=== PATIENT | female | born 1955 | race Caucasian/White ===

== ENCOUNTER → 2019-01-03 | Day surgery (SDC) | payer MEDICARE, OTHER ==
[2018-12-30 12:11] VITALS: BMI 32.3
[~2019-01-03] MED LIST: ALPRAZolam 0.25 MG TAB PO PRN; ASPIRIN 325 MG TAB PO STA; IOPAMIDOL-250 100ML BTL INTRAARTER ONE; IOPAMIDOL-250 50ML BTL INTRAARTER ONE; LIDOCAINE 1% INJ 10MG/ML (20 ML MDV) SQ ONE; MIDAZOLAM 2 MG/2 ML VIAL IVP ONE; SODIUM CHLORIDE 0.9% 1,000 ML IV SCH; SODIUM CHLORIDE 0.9% 1,000 ML in EMPTY BAG 1 BAG IV ONE
[2019-01-03 11:17] VITALS: TEMP 97.9
--- NOTE | 2019-01-03 14:53 | IR ---
Fluoroscopy HISTORY: Pain in leg 1.4 minutes fluoroscopy time supplied to the referring clinician. 126 intraoperative C-arm images do cument the procedure. See dictated report from cardiology.
[2019-01-03 15:03] VITALS: BP 170/74; PULSE 68; RESP 16
--- NOTE | 2019-01-03 15:34 | AN ---
ANGIOGRAPHY REPORT PROCEDURE PERFORMED: Abdominal aortogram and bilateral lower extremities runoff DATE OF SERVICE: 01/03/2019. INDICATION: This is a pleasant 63-year-old female patient who was experiencing bilateral lower extremity intermittent claudication and underwent an arterial duplex study which showed severe bilateral SFA disease. She was brought today to undergo an angiogram. APPROACH: Right common femoral artery. COMPLICATION: None. LEVEL OF SEDATION: Moderate with sedation length of 18 minutes. PROCEDURE DESCRIPTION: After obtaining an informed consent, the patient was brought to cardiac laboratory equipment installer. The right common femoral artery was cannulated using micropuncture technique and a micropuncture wire passed easily. Then I placed 4-Macedonian sheath in the right common femoral artery. After that, I did an abdominal aortogram and bilateral lower extremity runoff using 4- Macedonian pigtail catheter which was initially placed at the level of the renal arteries and it was pulled into above the bifurcation of the aorta to right and left common iliac arteries. The procedure was completed without any complication. PERIPHERAL ANGIOGRAM: 1. The aorta appeared to be angiographically normal. 2. COMMON ILIAC ARTERIES: The right and left common iliac arteries appear to have mild disease only. 3. External iliac artery: The right external iliac artery appeared to have a tight lesion in the range of 70%. The left external iliac artery appeared to have mild disease only. 4. Common femoral artery, both have mild disease only. 5. Profunda: Both profunda are patent. 6. SFA: The right SFA and left SFA are occluded on long segment. It is longer on the right side than the left side. Both reconstitute by the popliteal. 7. Popliteal: Both popliteal are angiographically normal. 8. Below the knee: There are 3 vessel runoff below the knee bilaterally. CONCLUSION: 1. 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 2. Occluded bilateral SFA. POSTPROCEDURE MANAGEMENT: TRASH MAN of bilateral SFA to be done on 2 separate sessions as well as TRASH MAN of the right external iliac. MMODL / IJN: [id number] /
== END | disposition home or self-care (01) ==
LOC: CATHCVL 10:53
PROVIDERS: ATTEND Internal Medicine Interventional Cardiology
DX: I70.213 Atherosclerosis of native arteries of extremities with intermittent claudication, bilateral legs (principal); F17.210 Nicotine dependence, cigarettes, uncomplicated; I10 Essential (primary) hypertension; E78.1 Pure hyperglyceridemia; E78.5 Hyperlipidemia, unspecified; Z79.899 Other long term (current) drug therapy
CPT/HCPCS: 36200; 75625; 75716; C1894; C1769 ×4; J2250; J2001; Q9966

== ENCOUNTER 2019-04-14 07:30 | Day surgery (SDC) | payer MEDICARE ==
[2019-03-17 09:58] VITALS: BMI 32.3
[~2019-04-14 07:30] MED LIST changes: -IOPAMIDOL-250 100ML BTL INTRAARTER ONE; -IOPAMIDOL-250 50ML BTL INTRAARTER ONE; -LIDOCAINE 1% INJ 10MG/ML (20 ML MDV) SQ ONE; -MIDAZOLAM 2 MG/2 ML VIAL IVP ONE; -SODIUM CHLORIDE 0.9% 1,000 ML IV SCH
[2019-04-14] MEDS ORDERED: SODIUM CHLORIDE 0.9% 1,000 ML IV ONE (08:22)
[2019-04-14] MEDS ORDERED: LIDOCAINE 1% INJ 10MG/ML (20 ML MDV) SQ ONE ×2 (09:19→09:20)
[2019-04-14] MEDS ORDERED: SODIUM CHLORIDE 0.9% 500 ML 500 ML with niCARdipine 6.25 MG, NITROGLYCERIN-D5W PMX 0.05... IV ONE ×4 (10:26)
[2019-04-14] MEDS ORDERED: IOPAMIDOL-250 100ML BTL INTRAARTER ONE (11:10)
[2019-04-14] MEDS ORDERED: niCARdipine Syringe (1,000 mcg/10 mL) INTRAARTER ONE (11:45)
[2019-04-14] MEDS ORDERED: NITROGLYCERIN 1000MCG/10ML SYRINGE INTRAARTER ONE (11:45)
[2019-04-14] MEDS ORDERED: IOPAMIDOL-250 50ML BTL INTRAARTER ONE (11:48)
[2019-04-14] MEDS ORDERED: SODIUM CHLORIDE 0.9% 500 ML 500 ML IV ONE (11:52)
[2019-04-14] MEDS ORDERED: ALPRAZolam 0.25 MG TAB PO PRN (11:57)
[2019-04-14] MEDS ORDERED: SODIUM CHLORIDE 0.9% 1,000 ML IV SCH (12:00)
[2019-04-14] MEDS ORDERED: HYDROmorphone 1 MG/ML 1 ML SYRINGE IVP STA (13:22)
[2019-04-14] MEDS ORDERED: HYDROmorphone 1 MG/ML 1 ML SYRINGE IVP ONE (13:45)
[2019-04-14] MEDS ORDERED: hydrALAZINE HCL 20 MG/ML 1 ML VIAL IVP PRN (14:46)
[2019-04-14] MEDS ORDERED: ATROPINE SULFATE 0.1 MG/ML 10ML SYRINGE ONE (15:19)
[2019-04-14 16:13] VITALS: RESP 18
--- NOTE | 2019-04-14 16:54 | LTR ---
April 14, 2019 To: Dr. Dakota Raphael Re: Morena Knapp (51) Dear Dr. Raphael, Mrs. Knapp underwent successful balloon angioplasty and stenting and opening of the left femoral artery with an excellent angiographic result and reduction of stenosis from 100% to 0%. Again thank you for allowing me to participate in her care and please do not hesitate to call with any questions or concerns. Sincerely, MD DAVID Franks / AVIN: [id number] /
--- NOTE | 2019-04-14 18:53 | AN ---
ANGIOGRAPHY REPORT DATE OF SERVICE: 04/14/2019 PERFORMING PHYSICIAN: Sina Marino MD, estimator and drafter. PROCEDURES PERFORMED: 1. Non-selective left eosrr-lew-ydov angiogram. 2. Selective left SFA angiogram. 3. Successful crossing of chronic total occlusion of the left SFA, which was a long chronic total occlusion extending from the ostium of the left SFA to the left popliteal. 4. Atherectomy of the left SFA using the orbital atherectomy device from C[facility]. 5. Balloon angioplasty of the left SFA. 6. Successful stenting of the left SFA using 3 Zilver PTX drug-coated stents with excellent angiographic results and reduction of stenosis from 100% to 0%. INDICATION: This is a pleasant 63-year-old female patient with prior history of smoking as well as multiple comorbidities who was experiencing bilateral lower extremity intermittent claudication and underwent a peripheral angiogram about 2 months ago that revealed occluded bilateral SFA with a long area of occlusion bilaterally. She underwent balloon angioplasty and stenting of the right SFA and she was brought today to undergo balloon angioplasty of the left SFA. APPROACH: Right common femoral artery. COMPLICATIONS: None. LEVEL OF SEDATION: The procedure was performed under general anesthesia. The duration of the procedure was 152 minutes. PROCEDURE DESCRIPTION: After obtaining informed consent, the patient was brought to the cardiac analyst microbiology lab. The right common femoral artery was cannulated using micropuncture technique and the micropuncture wire passed easily. Then I placed a 6-Zambian sheath 11 cm in the right common femoral artery. After that I did select the left SFA using a 5-Zambian RIM catheter with an 0.035 Aroda Advantage wire. After that I exchanged my 11 cm 6-Zambian sheath for a 55 cm 6-Zambian Raabe sheath using the 0.035 Aroda Advantage wire. The tip of the sheath was positioned in the left common femoral artery. I attempted to cross the chronic total occlusion of the left SFA using an 0.018 gold- tipped Glidewire, but I was only able to do so using an 0.035 stiff Glidewire with the backup support of an 0.035 CXI catheter. I advanced the CXI catheter to the left popliteal and I injected in the left popliteal to prove that I was in the true lumen. Subsequently I did exchange my 0.035 Glidewire for an 0.014 ViperWire, preparing for rotational atherectomy. I did rotational atherectomy of the proximal left SFA and attempted doing atherectomy of of a proximal left SFA I attempted doing atherectomy of the mid left SFA, but the atherectomy device stopped working, and because of that I had to pull the device out. Unfortunately, at that point I lost my wire position as well. So I did re-wire again the left SFA using an 0.035 stiff Glidewire with the backup support of 0.035 CXI catheter. After that I did balloon angioplasty of the left SFA using the 5.0 chocolate balloon. After that I did stenting of the left SFA using distally a Zilver PTX drug-coated stent, which was 6 x 140 mm. In the mid I deployed 7 x 140 mm. Proximally I deployed 7 x 100 mm. After that I did balloon all the stents using 6 x 200 mm balloon. The final angiogram showed excellent angiographic results with excellent pulse in the dorsalis pedis and posterior tibial artery. At that point, I exchanged my long sheath for a short sheath using 0.035 stiff Glidewire. After that I did selective right common femoral artery angiogram to assess the sheath entry in the right common femoral artery. Please note that before we started the procedure, I gave the patient 10,000 units of heparin IV with continuous ACT monitoring throughout the procedure. POST-PROCEDURE MANAGEMENT: 1. Dual anti-platelet therapy. 2. Risk factors modifications. 3. Follow up with the patient. DAVID / SILVA: [id number] /
[2019-04-14] MEDS: HYDROmorphone 1 MG/ML 1 ML SYRINGE IVP PRN ×2 (18:55→21:38)
[2019-04-15] MEDS: HYDROmorphone 1 MG/ML 1 ML SYRINGE IVP PRN (04:53)
[2019-04-15 07:57] LABS: Potassium 4.2 mmol/L (3.5-5.1)
[2019-04-15 08:19] LABS: Basophils % (A) 0 %; Eosinophils # (A) 0.1 k/uL (0-0.7); Eosinophils % (A) 1 %; HCT 30.1 % (34.0-46.0); Hypochromasia Slight; Lymphocytes # (A) 1.6 k/uL (1.0-4.8); Lymphocytes % (A) 14 %; MCH 27.6 pg (25.0-35.0); MCHC 31.4 g/dL (31.0-37.0); Mean Platelet Volume 7.4; Monocytes # (A) 0.5 k/uL (0-1.0); Monocytes % (A) 5 %; Neutrophils % (A) 79 %; Platelet Count 299 k/uL (150-450); RBC 3.42 m/uL (3.80-5.40); RDW 13.8 % (11.5-15.5); WBC 11.4 k/uL (3.8-10.6)
[2019-04-15 08:24] LABS: HGB 9.4 gm/dL (11.4-16.0)
[2019-04-15] MEDS ORDERED: RX INFO: IV CONTRAST WAS GIVEN 1 EACH MISC MISCELLANE PRN (08:33)
[2019-04-15] MEDS ORDERED: SODIUM CHLORIDE 0.9% 1,000 ML IV ONE (08:34)
[2019-04-15] MEDS ORDERED: EPA PO SCH (09:00)
[2019-04-15] MEDS ORDERED: CLOPIDOGREL 75 MG TAB PO SCH (09:00)
[2019-04-15] MEDS ORDERED: MAGNESIUM OXIDE 400 MG TAB PO SCH (09:00)
[2019-04-15] MEDS ORDERED: FISH OIL PO SCH (09:00)
[2019-04-15] MEDS ORDERED: LISINOPRIL-HCTZ 20-12.5 MG 1 EACH TAB PO SCH (09:00)
[2019-04-15] MEDS ORDERED: ATORVASTATIN 20 MG TAB PO SCH (09:00)
[2019-04-15] MEDS ORDERED: CALCIUM CARB-VIT D 500MG-200UN 1 EACH TAB PO SCH (09:00)
[2019-04-15] MEDS ORDERED: buPROPion SR 150 MG TABLET.ER PO SCH (09:00)
[2019-04-15] MEDS ORDERED: DHA PO SCH (09:00)
[2019-04-15] MEDS ORDERED: ASPIRIN 325 MG TAB PO SCH (09:00)
--- NOTE | 2019-04-15 10:21 | CT ---
EXAMINATION TYPE: CT angio abd aorta w/Runoff DATE OF EXAM: 04/15/2019 HISTORY: Recent stenting in left leg CT DLP: 3860.5mGycm Automated Exposure Control for Dose Reduction was Utilized. CONTRAST: CT scan of the abdomen and pelvis is performed without and with IV Contrast, patient injected with 10 0 mL of Isovue 370. COMPARISON: None. FINDINGS: There is dependent atelectasis present at the right lung base. Visualized portions of the l ungs are clear. There is no pleural or pericardial fluid. The heart is not enlarged. Within the abdomen, the liver, gallbladder and spleen are normal. There is a 1.6 cm right adrenal mas s and a larger 3.8 cm left adrenal mass. Both kidneys demonstrate function and appear morphologically normal. The pancreas is unremarkable. There is extensive arterial calcification throughout the study including the coronary arteries. This is most marked in the iliac, femoral and popliteal arteries. There is a right knee arthroplasty in pl katelynn obscuring the arterial detail the level of the right knee. There is initially three-vessel runoff bilaterally. There is two-vessel runoff on the right extending to the ankle consisting of the perone al artery and the posterior tibial artery. There is two-vessel runoff on the left than the level of t he ankle consisting of the posterior tibial artery and the peroneal artery. There is swelling in the left thigh with a small pocket of air. This may relate to the patient's punc ture. The bladder is unremarkable. Uterus is normal in size. The ovaries are not seen with certainty. There is no significant diverticular change and there is no radiographic evidence of diverticulitis. The appendix is normal. Small bowel loops are normal in caliber. There is no free fluid and no free air. There is an umbilical hernia containing fat only with a mouth measuring 6.3 mm. Just superior to this is a ventral hernia containing fat only with a mouth measuring 1.2 cm. There is facet arthropathy in the lower lumbar spine and mild hypertrophic spondylosis in the upper s pine. IMPRESSION: 1. EXTENSIVE ARTERIAL CALCIFICATION WITH TWO-VESSEL RUNOFF BILATERALLY. 2. MODERATE SOFT TISSUE SWELLING ADJACENT TO THE PUNCTURE SITE LIKELY REPRESENTING A HEMATOMA. 3. BILATERAL ADRENAL MASSES, GREATER ON THE LEFT THAN THE RIGHT. 4. VENTRAL AND UMBILICAL HERNIAS CONTAINING FAT ONLY. 5. MILD DEGENERATIVE CHANGES WITHIN THE SPINE.
--- NOTE | 2019-04-15 11:15 | P.DS ---
Providers Date of admission: April 142018 Attending physician: Sina Marino Primary care physician: Dakota Muro [facility] Course: This is a 63-year-old female patient with known peripheral arterial disease and known occluded bilateral superficial femoral arteries and status post balloon angioplasty and stenting of the right SFA, was admitted to the hospital yesterday and underwent successful crossing chronic total occlusion of the long segment in the left SFA extends from ostium all the way to the canal Wilberto. The SFA was crossed in antegrade technique from right groin approach. The procedure was completed without any complication with good angiographic results and reduction of stenosis from 100% to 0%. By the end of the procedure I was able to feel 2+ pulse in the dorsalis pedis on the left side. On follow-up with her today, she was experiencing left thigh discomfort. On examination the left thigh is slightly tender and swollen compared to the right. She still have good pedal pulses. I did suspect bleeding in the thigh on the left side and because of that CTA was performed and did not show any evidence of active bleeding without any extravasation of contrast outside the left SFA but the patient did have a hematoma posterior to the stent in the left thigh. The hemoglobin this morning is 9.4 which was dropped from 11 few weeks ago. I do feel that this is could be an error. I am repeating the hemoglobin this morning again. If the hemoglobin is stable, the patient is going to be discharged home on dual antiplatelet therapy as well as a statin. If the hemoglobin is dropping down I will take the patient back to the rehab and p erform selective left SFA angiogram with the possible placement of covered stent in the left SFA. Plan - Discharge Summary Discharge Rx Participant: No New Discharge Prescriptions: Continue buPROPion [Wellbutrin] 150 mg PO DAILY Atorvastatin [Lipitor] 20 mg PO DAILY Aspirin 325 mg PO DAILY Fish Oil/Dha/Epa [Fish Oil 1,200 mg Fish Oil] 2 each PO DAILY Calcium Carbonate/Vitamin D3 [Calcium 600-Vit D3 400 Caplet] 2 each PO DAILY Lisinopril-Hctz 20-12.5 mg [Zestoretic 20-12.5] 2 tab PO DAILY Clopidogrel [Plavix] 75 mg PO DAILY #90 tab Magnesium Oxide [Anderson] 500 mg PO DAILY ALPRAZolam [Xanax] 0.25 mg PO BID PRN PRN Reason: Anxiety Discharge Medication List buPROPion [Wellbutrin] 150 mg PO DAILY 05/25/16 [History] Aspirin 325 mg PO DAILY 12/30/18 [History] Atorvastatin [Lipitor] 20 mg PO DAILY 12/30/18 [History] Calcium Carbonate/Vitamin D3 [Calcium 600-Vit D3 400 Caplet] 2 each PO DAILY 12/30/18 [History] Fish Oil/Dha/Epa [Fish Oil 1,200 mg Fish Oil] 2 each PO DAILY 12/30/18 [History] Lisinopril-Hctz 20-12.5 mg [Zestoretic 20-12.5] 2 tab PO DAILY 02/16/19 [Hist ory] Clopidogrel [Plavix] 75 mg PO DAILY #90 tab 02/23/19 [Rx] Magnesium Oxide [Anderson] 500 mg PO DAILY 03/17/19 [History] ALPRAZolam [Xanax] 0.25 mg PO BID PRN 04/12/19 [History] Follow up Appointment(s)/Referral(s): Sina Marino MD [STAFF PHYSICIAN] - 1 Week
[2019-04-15 11:29] LABS: Basophils % (A) 0 %; Eosinophils # (A) 0.2 k/uL (0-0.7); Eosinophils % (A) 2 %; HGB 9.6 gm/dL (11.4-16.0); Lymphocytes # (A) 2.6 k/uL (1.0-4.8); Lymphocytes % (A) 19 %; MCHC 31.1 g/dL (31.0-37.0); MCV 86.8 fL (80.0-100.0); Mean Platelet Volume 7.1; Monocytes # (A) 0.9 k/uL (0-1.0); Monocytes % (A) 7 %; Neutrophils # (A) 9.4 k/uL (1.3-7.7); Neutrophils % (A) 70 %; Platelet Count 299 k/uL (150-450); RBC 3.58 m/uL (3.80-5.40); RDW 13.6 % (11.5-15.5); WBC 13.3 k/uL (3.8-10.6)
[2019-04-15 11:54] VITALS: BP 146/62; PULSE 92; TEMP 98.1
--- NOTE | 2019-04-18 16:48 | IR ---
Fluoroscopy HISTORY: Pain in left leg 72.2 minutes fluoroscopy time supplied to the referring clinician. 391 intraoperative C-arm images d ocument the procedure. See dictated report from cardiology.
== END 2019-04-15 13:32 | disposition home or self-care (01) ==
LOC: CATHCVL 07:30 → 3SCARD 14:41 → CATHCVL 04-15 13:32
PROVIDERS: ATTEND Internal Medicine Interventional Cardiology
DX: I70.212 Atherosclerosis of native arteries of extremities with intermittent claudication, left leg (principal); I10 Essential (primary) hypertension; E78.5 Hyperlipidemia, unspecified; F17.200 Nicotine dependence, unspecified, uncomplicated; Z82.49 Family history of ischemic heart disease and other diseases of the circulatory system; Z95.820 Peripheral vascular angioplasty status with implants and grafts; Z79.02 Long term (current) use of antithrombotics/antiplatelets; Z79.82 Long term (current) use of aspirin; Z79.899 Other long term (current) drug therapy
CPT/HCPCS: 37227; 80048; 84132; 85025; 75635; C1894 ×2; C1769 ×8; C1714; C1725 ×2; C1874 ×2; S0106; J2001; J1170 ×2; Q9966 ×2; Q9967

== ENCOUNTER → 2020-01-18 | Outpatient (CLI) | payer MEDICARE ==
[2020-01-18 13:12] LABS: HCT 37.9 % (34.0-46.0); MCH 27.1 pg (25.0-35.0); MCHC 31.6 g/dL (31.0-37.0); MCV 85.9 fL (80.0-100.0); Mean Platelet Volume 7.3; Platelet Count 325 k/uL (150-450); RBC 4.41 m/uL (3.80-5.40); RDW 13.8 % (11.5-15.5); WBC 8.8 k/uL (3.8-10.6)
== END | disposition home or self-care (01) ==
LOC: LABPAT 12:01
PROVIDERS: ATTEND Internal Medicine Interventional Cardiology
DX: Z01.812 Encounter for preprocedural laboratory examination (principal); I73.9 Peripheral vascular disease, unspecified
CPT/HCPCS: 80051; 82565; 84520; 85027

== ENCOUNTER 2020-01-26 09:25 | Day surgery (SDC) | payer MEDICARE ==
[2020-01-24 12:52] VITALS: BMI 32.3
[~2020-01-26 09:25] MED LIST changes: +ALPRAZolam 0.5 MG TAB PO PRN; +ATORVASTATIN 80 MG TAB PO STA; +NITROGLYCERIN SL TABS 0.4 MG TAB SUBLINGUAL PRN
[2020-01-26 09:55] VITALS: RESP 16; TEMP 97.8
[2020-01-26] MEDS ORDERED: SODIUM CHLORIDE 0.9% 1,000 ML IV ONE (09:56)
[2020-01-26] MEDS ORDERED: MIDAZOLAM 2 MG/2 ML VIAL IV ONE ×2 (10:54→10:57)
[2020-01-26] MEDS ORDERED: LIDOCAINE 1% INJ 10MG/ML (20 ML MDV) SQ ONE (10:57)
[2020-01-26] MEDS ORDERED: HYDROmorphone 1 MG/ML 1 ML SYRINGE IVP ONE (10:59)
[2020-01-26] MEDS ORDERED: IOPAMIDOL-250 100ML BTL INTRAARTER ONE (11:07)
[2020-01-26] MEDS ORDERED: SODIUM CHLORIDE 0.9% 1,000 ML IV SCH (11:15)
--- NOTE | 2020-01-26 11:42 | AN ---
ANGIOGRAPHY REPORT DATE OF SERVICE: 01/26/2020 PERFORMING PHYSICIAN: Sina Marino MD. PROCEDURE PERFORMED: 1. An abdominal aortogram. 2. Bilateral lower extremities runoff. INDICATION: This is a pleasant 64-year-old female patient with history of peripheral arterial disease and prior stenting of the right external iliac artery as well as bilateral SFA, was experiencing symptoms of bilateral lower extremities intermittent claudication, worse on the left side. She was brought today to undergo an abdominal aortogram and bilateral lower extremities runoff. APPROACH: Right common femoral artery. COMPLICATION: None. LEVEL OF SEDATION: Moderate with sedation length of 13 minutes. PROCEDURE DESCRIPTION: After obtaining an informed consent, the patient was brought to the cardiac botany laboratory assistant. The right common femoral artery was cannulated using micropuncture technique and a micropuncture wire passed easily, then I placed a 5-Swedish sheath 11 cm at the right groin. An abdominal aortogram and bilateral lower extremities runoff were performed using a 5- Swedish pigtail catheter. The procedure was completed without any complication. Please note that the catheter was placed initially at the level of the renal arteries and it was pulled into above the bifurcation of the aorta to right and left common iliac arteries. SELECTIVE PERIPHERAL ANGIOGRAM: 1. The aorta appeared to have mild disease only. 2. Common iliac arteries, both appear to have mild disease only. 3. External iliac artery, the right external iliac artery is stented and the left external iliac artery appeared to have mild disease only. 4. Common femoral arteries, both are patent. 5. The SFA, both are stented and the right SFA appeared to have critical in-stent restenosis and the left SFA is occluded. 6. Popliteal, both appear to have mild to moderate diffuse disease. 7. Below the knee, there are 3 vessel runoff below the knee bilaterally. CONCLUSION: 1. Patent stent in the right external iliac artery. 2. Occluded critical right SFA and occluded left SFA. Both appeared to be in-stent disease. 3. Three vessel runoff below the knee bilaterally. POSTPROCEDURE MANAGEMENT: I will discuss with the patient the next step which either trying to open his bilateral SFA right open the bilateral SFA r to have a femoral-popliteal bypass. MMODL / IJN: [id number] /
--- NOTE | 2020-01-26 12:48 | IR ---
Fluoroscopy HISTORY: Leg pain, peripheral vascular occlusive disease 120 seconds fluoroscopy time supplied to the referring clinician. 98 intraoperative C-arm images doc ument the procedure. See dictated report from cardiology.
[2020-01-26 16:25] VITALS: BP 145/56
[2020-01-26 16:31] VITALS: PULSE 72
== END 2020-01-26 16:05 | disposition home or self-care (01) ==
LOC: CATHCVL 09:25
PROVIDERS: ATTEND Internal Medicine Interventional Cardiology
DX: I70.213 Atherosclerosis of native arteries of extremities with intermittent claudication, bilateral legs (principal); T82.856A Stenosis of peripheral vascular stent, initial encounter; I10 Essential (primary) hypertension; E78.5 Hyperlipidemia, unspecified; F17.210 Nicotine dependence, cigarettes, uncomplicated; Z95.820 Peripheral vascular angioplasty status with implants and grafts; Z79.899 Other long term (current) drug therapy; Z79.82 Long term (current) use of aspirin; Z79.02 Long term (current) use of antithrombotics/antiplatelets; Z82.49 Family history of ischemic heart disease and other diseases of the circulatory system
CPT/HCPCS: 36200; 75625; 75716; C1769 ×5; C1894; J2250; J2001; J1170; Q9966

== ENCOUNTER → 2020-06-14 | Outpatient (CLI) | payer MEDICARE ==
[2020-06-14 13:32] LABS: HCT 32.1 % (34.0-46.0); HGB 9.8 gm/dL (11.4-16.0); Hypochromasia Marked; MCH 24.7 pg (25.0-35.0); MCHC 30.3 g/dL (31.0-37.0); MCV 81.4 fL (80.0-100.0); Mean Platelet Volume 7.9; Platelet Count 375 k/uL (150-450); RBC 3.95 m/uL (3.80-5.40); WBC 8.2 k/uL (3.8-10.6)
[2020-06-14 13:46] LABS: African American GFR (CKD) >90 (>60 ml/min/1.73 sqM); Anion Gap 8 mmol/L; Blood Urea Nitrogen 20 mg/dL (7-17); Carbon Dioxide 26 mmol/L (22-30); Chloride 104 mmol/L (98-107); Magnesium 1.8 mg/dL (1.6-2.3); Non-African American GFR(CKD) 82 (>60 ml/min/1.73 sqM); Potassium 4.3 mmol/L (3.5-5.1); Sodium 138 mmol/L (137-145)
== END | disposition home or self-care (01) ==
LOC: LABPAT 11:56
PROVIDERS: ATTEND Internal Medicine Interventional Cardiology
DX: Z01.818 Encounter for other preprocedural examination (principal); I73.9 Peripheral vascular disease, unspecified
CPT/HCPCS: 80051; 82565; 83735; 84520; 85027

== ENCOUNTER 2020-06-19 06:17 | Day surgery (SDC) | payer MEDICARE ==
[2020-06-18 08:50] VITALS: BMI 32.3
[2020-06-19] MEDS ORDERED: ALPRAZolam 0.25 MG TAB PO PRN ×2 (06:26→10:46)
[2020-06-19] MEDS ORDERED: SODIUM CHLORIDE 0.9% 1,000 ML in EMPTY BAG 1 BAG IV ONE (06:26)
[2020-06-19] MEDS ORDERED: ASPIRIN 325 MG TAB PO ONE (07:00)
[2020-06-19] MEDS ORDERED: HYDROmorphone 1 MG/ML 1 ML SYRINGE IVP ONE (08:14)
[2020-06-19] MEDS ORDERED: MIDAZOLAM 2 MG/2 ML VIAL IVP ONE (08:14)
[2020-06-19] MEDS ORDERED: LIDOCAINE 1% INJ 10MG/ML (20 ML MDV) SQ ONE (08:15)
[2020-06-19] MEDS: hydrALAZINE HCL 20 MG/ML 1 ML VIAL IV ONE ×2 (08:20→12:20)
[2020-06-19] MEDS ORDERED: ENALAPRILAT 1.25 MG/ML 1 ML VIAL IV ONE (08:20)
[2020-06-19] MEDS: HEPARIN SODIUM 1,000 UN/ML (10ML VL) IV ONE ×2 (08:25→09:45)
[2020-06-19] MEDS ORDERED: niCARdipine Syringe (1,000 mcg/10 mL) INTRAARTER ONE (10:02)
[2020-06-19] MEDS ORDERED: IOPAMIDOL-250 100ML BTL INTRAARTER ONE (10:06)
[2020-06-19] MEDS ORDERED: CLOPIDOGREL 75 MG TAB PO ONE (10:11)
--- NOTE | 2020-06-19 10:43 | IR ---
EXAMINATION TYPE: IR fire suppression captain femoral popliteal DATE OF EXAM: 06/19/2020 CLINICAL HISTORY: Peripheral vascular disease TECHNIQUE: Fluoroscopy. COMPARISON: None. FINDINGS: Fluoroscopic guidance was provided during lower extremity angiogram procedure performed by Dr. Marino. A total of 30.4 minutes of fluoroscopic time was utilized during the procedure and multip le images was acquired. Long segment arterial stent within the left lower extremity from groin to pro ximal knee region noted. Please refer to procedure note for further details as I was not present nor performed procedure. IMPRESSION: As Above.
[2020-06-19] MEDS ORDERED: SODIUM CHLORIDE 0.9% 1,000 ML in EMPTY BAG 1 BAG IV SCH (11:00)
[2020-06-19] MEDS ORDERED: HYDROmorphone 1 MG/ML 1 ML SYRINGE ONE (11:41)
[2020-06-19] MEDS ORDERED: hydrALAZINE HCL 20 MG/ML 1 ML VIAL ONE (12:08)
[2020-06-19] MEDS ORDERED: hydrALAZINE HCL 20 MG/ML 1 ML VIAL IVP ONE (12:10)
[2020-06-19] MEDS ORDERED: hydrALAZINE HCL 20 MG/ML 1 ML VIAL IVP PRN (12:10)
[2020-06-19] MEDS: HYDROmorphone 0.5 MG/0.5 ML SYRINGE IVP PRN ×2 (15:37→21:14)
[2020-06-19 15:49] VITALS: RESP 16
[2020-06-19] MEDS: lisinopriL 20 MG TAB PO SCH (21:12)
--- NOTE | 2020-06-19 23:25 | PCN ---
PROCEDURE NOTE PROCEDURE: Percutaneous peripheral intervention. DATE OF SERVICE: 06/19/2020 PERFORMING PHYSICIAN: Sina Marino M.D. PROCEDURES PERFORMED: 1. Successful balloon angioplasty of the left superficial femoral artery as well as left popliteal using a 6.0 x 250 mm Inpact drug-coated balloon as well as a 6.0 x 120 mm Inpact drug-coated balloon with excellent angiographic results and reduction of stenosis from 100% to 0%. 2. Intravascular ultrasound (IVUS) of the left SFA and left popliteal. 3. Left lower extremity angiogram. 4. Successful crossing of chronic total occlusion of the left superficial femoral artery. INDICATION: This is a 65-year-old female patient with peripheral arterial disease and prior angioplasty of bilateral SFA who was experiencing bilateral lower extremity intermittent claudication and underwent an angiogram that revealed occluded bilateral SFA. She was brought today to undergo an intervention on the left leg. APPROACH: Right common femoral artery. COMPLICATIONS: None. LEVEL OF SEDATION: Moderate, with sedation length of 112 minutes. PROCEDURE DESCRIPTION: After obtaining informed consent, the patient was brought to the cardiac laborer ammunition assembly. The right common femoral artery was cannulated using micropuncture technique. The micropuncture wire passed easily. Then I placed a 6-Canadian 55 cm sheath at the right groin. Subsequently I did select the left profunda using an 0.035 stiff Glidewire with the backup support of 5-Canadian RIM catheter. Then I advanced the RIM catheter over the wire all the way to the left common femoral artery. Then I advanced the sheath over the wire and the RIM catheter all the way to the left common femoral artery. Anticoagulation at that point was initiated using heparin. The patient was given a total of 8000 units of heparin at the beginning of the procedure with addition of 2000 units during the procedure with continuous ACT monitoring. I did left lower extremity angiogram which revealed 3-vessel runoff below the knee on the left side with severe disease involving the proximal left popliteal and occluded left SFA, which seems to be in-stent occlusion. After that I did cross the chronic total occlusion of the left SFA using an 0.018 stephen-tip Glidewire with the backup support of an 0.018 catheter. The catheter was advanced all the way to the left popliteal. Then I pulled the wire out and I did injection through the catheter to prove that I was in the true lumen. After that I did IVUS of the left SFA which revealed possible thrombus, and because of that I decided not to do atherectomy. Balloon angioplasty was performed initially using a 4 mm balloon and subsequently a 6 mm Chocolate balloon. Then I did after that balloon angioplasty using a drug-coated balloon which was 6 x 250 mm and 6 x 120 mm balloon. There was an area at the distal left SFA which I decided to balloon using an AngioSculpt balloon because there was some severe in-stent restenosis, but after the AngioSculpt balloon the in-stent stenosis had improved. After the drug-coated balloon, the lesion looked much better as well. The final angiogram showed excellent angiographic results and the procedure was completed without any complication. POST-PROCEDURE MANAGEMENT: 1. Anticoagulation and anti-platelet. 2. Follow up with the patient. 3. Continue monitoring the lesion in the distal left SFA. 4. Follow up with the patient. 5. of the right SFA. MMODL / IJN: [id number] /
[2020-06-20 07:30] LABS: African American GFR (CKD) >90 (>60 ml/min/1.73 sqM); Anion Gap 3 mmol/L; Blood Urea Nitrogen 15 mg/dL (7-17); Calcium 8.5 mg/dL (8.4-10.2); Carbon Dioxide 27 mmol/L (22-30); Chloride 109 mmol/L (98-107); Glucose 94 mg/dL (74-99); Non-African American GFR(CKD) 88 (>60 ml/min/1.73 sqM); Potassium 3.8 mmol/L (3.5-5.1); Sodium 139 mmol/L (137-145)
[2020-06-20 08:04] LABS: Anisocytosis Slight; Basophils % (A) 0 %; Eosinophils # (A) 0.3 k/uL (0-0.7); Eosinophils % (A) 3 %; Hypochromasia Marked; Lymphocytes # (A) 2.1 k/uL (1.0-4.8); Lymphocytes % (A) 26 %; MCH 24.6 pg (25.0-35.0); MCHC 30.2 g/dL (31.0-37.0); MCV 81.7 fL (80.0-100.0); Mean Platelet Volume 7.9; Monocytes # (A) 0.5 k/uL (0-1.0); Monocytes % (A) 6 %; Neutrophils % (A) 63 %; Platelet Count 327 k/uL (150-450); RBC 3.67 m/uL (3.80-5.40); RDW 16.3 % (11.5-15.5)
[2020-06-20 08:39] VITALS: BP 157/77; PULSE 82; TEMP 82
[2020-06-20] MEDS: lisinopriL 20 MG TAB PO SCH (08:45)
[2020-06-20] MEDS ORDERED: ASPIRIN 325 MG TAB PO SCH (09:00)
[2020-06-20] MEDS ORDERED: CLOPIDOGREL 75 MG TAB PO SCH (09:00)
[2020-06-20] MEDS ORDERED: ATORVASTATIN 20 MG TAB PO SCH (09:00)
[2020-06-20] MEDS ORDERED: NON FORMULARY DRUG (Fish Oil/Dha/Epa [Fish Oil 1,200 Mg Fish Oil] 1 EACH) PO SCH (09:00)
[2020-06-20] MEDS ORDERED: CALCIUM CARB-VIT D 500MG-200UN 1 EACH TAB PO SCH (09:00)
[2020-06-20] MEDS ORDERED: DESVENLAFAXINE SUCCINATE 50 MG TAB.ER.24H PO SCH (09:00)
[2020-06-20] MEDS ORDERED: MAGNESIUM OXIDE 400 MG TAB PO SCH (09:00)
[2020-06-20 09:08] LABS: Poikilocytosis (M) Present
--- NOTE | 2020-06-20 10:29 | DS ---
DISCHARGE SUMMARY ADMISSION DATE: 06/19/2020. DISCHARGE DATE: 06/20/2020. BRIEF HISTORY: This is a 65-year-old female patient who underwent yesterday successful recanalizing chronic total occlusion of the left SFA with an excellent angiographic results and without any complication. The procedure was performed from right groin approach. The patient was seen today. She is going to be discharged on anti-platelet and anticoagulation. She closed her SFA on Plavix and because of that I am going to start her on Xarelto. I will follow up with the patient next week in the office. MMODL / AVIN: [id number] /
== END 2020-06-20 10:05 | disposition home or self-care (01) ==
LOC: CATHCVL 06:17 → 3NCARDOBS 13:56 → CATHCVL 06-20 10:05
PROVIDERS: ATTEND Internal Medicine Interventional Cardiology
DX: I70.213 Atherosclerosis of native arteries of extremities with intermittent claudication, bilateral legs (principal); I70.92 Chronic total occlusion of artery of the extremities; I10 Essential (primary) hypertension; E78.5 Hyperlipidemia, unspecified; Z79.02 Long term (current) use of antithrombotics/antiplatelets; Z79.82 Long term (current) use of aspirin; Z79.899 Other long term (current) drug therapy; Z87.891 Personal history of nicotine dependence; Z82.49 Family history of ischemic heart disease and other diseases of the circulatory system
CPT/HCPCS: 37224; 85347; 37252; 80048; 85025; C1894 ×2; C1769 ×5; C1725 ×4; C1753; C2623 ×2; J2250; J0360; J2001; J1644; J1170 ×2; Q9966

== ENCOUNTER → 2023-03-22 | Outpatient (CLI) | payer MEDICARE ==
[2023-03-22 15:27] LABS: Basophils # (A) 0.04 X 10*3/uL (0.00-0.10); Basophils % (A) 0.5 %; Eosinophils # (A) 0.23 X 10*3/uL (0.04-0.35); Eosinophils % (A) 2.7 %; HCT 41.8 % (37.2-46.3); HGB 12.7 g/dL (12.0-15.0); Immature Grans, Automated 0.6 %; Lymphocytes # (A) 2.57 X 10*3/uL (0.90-5.00); Lymphocytes % (A) 30.6 %; MCH 26.6 pg (27.0-32.0); MCHC 30.4 g/dL (32.0-37.0); MCV 87.4 fL (80.0-97.0); Mean Platelet Volume 10.7 fL (9.5-12.2); Monocytes # (A) 0.58 X 10*3/uL (0.20-1.00); Monocytes % (A) 6.9 %; NRBC Per 100 WBC 0 /100 WBCS (0.0-0.0); Neutrophils # (A) 4.94 X 10*3/uL (1.80-7.70); Neutrophils % (A) 58.7 %; Platelet Count 337 X 10*3/uL (140-440); RBC 4.78 X 10*6/uL (4.10-5.20); RDW 14.6 % (11.5-14.5); WBC 8.41 X 10*3/uL (4.50-10.00)
[2023-03-22 15:46] LABS: African American GFR (CKD) 102.5 (60.0-200.0); Anion Gap 5.4 mmol/L (10.00-18.00); Blood Urea Nitrogen 20.9 mg/dL (9.0-27.0); Carbon Dioxide 31.6 mmol/L (20.0-27.5); Non-African American GFR(CKD) 88.4 (60.0-200.0); Potassium 4.4 mmol/L (3.5-5.5)
== END | disposition home or self-care (01) ==
LOC: LABPAT 10:32
PROVIDERS: ATTEND Internal Medicine Interventional Cardiology
DX: Z01.812 Encounter for preprocedural laboratory examination (principal); I70.213 Atherosclerosis of native arteries of extremities with intermittent claudication, bilateral legs
CPT/HCPCS: 36415; 80051; 82565; 84520; 85025

== ENCOUNTER 2023-03-31 06:31 | Observation (INO) | payer MEDICARE ==
[2023-03-26 15:39] VITALS: BMI 32.3
[~2023-03-31 06:31] MED LIST changes: -ALPRAZolam 0.5 MG TAB PO PRN; +ASPIRIN 325 MG TAB PO PRN; -ASPIRIN 325 MG TAB PO STA; -ATORVASTATIN 80 MG TAB PO STA; -NITROGLYCERIN SL TABS 0.4 MG TAB SUBLINGUAL PRN
[2023-03-31] MEDS ORDERED: SODIUM CHLORIDE 0.9% 1,000 ML IV ONE ×2 (07:13)
[2023-03-31] MEDS ORDERED: fentaNYL (PF) 50 MCG/ML 2 ML AMP IV ONE ×3 (07:49)
[2023-03-31] MEDS ORDERED: LIDOCAINE 1% INJ 10MG/ML (20 ML MDV) SQ ONE (07:49)
[2023-03-31] MEDS ORDERED: MIDAZOLAM 2 MG/2 ML VIAL IV ONE ×2 (07:49→08:22)
[2023-03-31] MEDS ORDERED: fentaNYL (PF) 50 MCG/ML 2 ML AMP ONE (08:00)
[2023-03-31] MEDS ORDERED: HEPARIN SODIUM 1,000 UN/ML (10ML VL) ONE (08:03)
[2023-03-31] MEDS ORDERED: HEPARIN SODIUM 1,000 UN/ML (10ML VL) IV ONE (08:04)
[2023-03-31] MEDS: NITROGLYCERIN 1000MCG/10ML SYRINGE INTRAARTER ONE ×2 (08:51→09:06)
[2023-03-31] MEDS ORDERED: CLOPIDOGREL 75 MG TAB ONE (08:57)
[2023-03-31] MEDS ORDERED: CLOPIDOGREL 75 MG TAB PO ONE (08:59)
[2023-03-31] MEDS ORDERED: niCARdipine 25 MG/10 ML VIAL ONE (09:05)
[2023-03-31] MEDS ORDERED: niCARdipine Syringe (1,000 mcg/10 mL) INTRACORON ONE (09:06)
[2023-03-31] MEDS ORDERED: IOPAMIDOL-250 100ML BTL INTRAARTER ONE (09:08)
[2023-03-31] MEDS ORDERED: HYDROmorphone 1 MG/ML 1 ML SYRINGE IVP ONE ×2 (09:28→09:29)
[2023-03-31] MEDS ORDERED: PROTAMINE SULFATE 10 MG/ML 5 ML VIAL IV ONE (09:29)
[2023-03-31] MEDS ORDERED: NALOXONE 0.4 MG/ML 1 ML VIAL IVP PRN ×2 (09:37→12:36)
--- NOTE | 2023-03-31 09:45 | P.PCN ---
Date of Procedure: 03/31/23 Operative Findings: PERCUTANEOUS PERIPHERAL INTERVENTION Performing physician Sina Marino M.D. Procedure performed 1. Successful balloon angioplasty of the right SFA using 5.0 mm x 250 mm drug- coated balloon 2. An atherectomy of the right SFA using the orbital atherectomy device and using 1.5 mm laurie 3. Intravascular ultrasound of the right SFA 4. Right lower exam angiogram 5. Left common femoral artery angiogram 6. Ultrasound guided access of the left common femoral artery Indication Evidence of critical limb ischemia/resting pain for this 67-year-old female patient who is known to have CAD with prior angioplasty of the right SFA beach she underwent recently a Doppler and that showed occluded right SFA and severe disease involving the left SFA Approach Left common femoral artery Complications None Level of sedation Moderate with a sedation time of 88 minutes Procedure description Obtaining an informed consent the patient was brought to the cardiac lab director. The left common femoral artery was cannulated using micropuncture technique under ultrasound guidance, the micropuncture wire passed easily then I place a 6-Spanish sheath 70 cm at the left common femoral artery. Subsequently I did selective the right SFA using 035 stiff Glidewire. Subsequently I advanced the sheath using the dilator over the old 35 stiff Glidewire to the right common femoral artery. Right lower 70 angiogram was performed and showed 3 vessels run off below the knee on the right side with patent right popliteal and occluded right SFA in-stent occlusion as well as de sundeep occlusion. Successful recanalizing of the SFA was performed using 035 stiff Glidewire with a backup support of 035 catheter. Please note that anticoagulation was initiated using heparin with continuous ACT monitoring. After that I did intravascular ultrasound of the right SFA and that showed that I was in the true lumen all the way. I did atherectomy of the segment between the 2 stents in the proximal and distal right SFA using the orbital atherectomy device after I exchanged my 035 wire into 014 atherectomy wire. After that I did balloon angioplasty using 5 mm chocolate balloon and subsequently 5 mm regular balloon. Final angiogram was performed and showed excellent angiographic results. I decided to finish using drug-coated balloon which was 5 mm by to 50 mm balloon. The balloon was inflated under 10 milad for 3 minutes. The final angiogram was performed showed an excellent angiographic results. Subsequently I did exchange my 70 cm 6- Spanish into an 11 cm 6-Spanish using 035 wire. I had some difficulties advancing the 6-Spanish sheath over the guidewire and the tube with a stiffer wire. The patient did have some groin hematoma was reduced using manual compression with a 7-Spanish into place. Finally I did selective left common femoral artery angiogram. The procedure was completed with no complications Postprocedure management 1. Dual antiplatelet therapy 2. Aggressive cholesterol control 3. Risk factors modification 4. Follow-up with the patient
--- NOTE | 2023-03-31 10:22 | IR ---
EXAMINATION TYPE: IR pocket grinder operator femoral popliteal DATE OF EXAM: 03/31/2023 COMPARISON: NONE HISTORY: Fluoroscopy time. Fluoroscopy was provided to the referring clinician.
[2023-03-31] MEDS ORDERED: HYDROmorphone 1 MG/ML 1 ML SYRINGE IVP PRN (11:26)
[2023-03-31] MEDS ORDERED: SODIUM CHLORIDE 0.9% 1,000 ML in EMPTY BAG 1 BAG IV SCH (12:45)
[2023-03-31] MEDS: HYDROmorphone 0.5 MG/0.5 ML SYRINGE IVP PRN ×3 (14:26→23:45)
[2023-04-01] MEDS: HYDROmorphone 0.5 MG/0.5 ML SYRINGE IVP PRN ×2 (05:50→09:56)
[2023-04-01 05:55] VITALS: TEMP 97.7
[2023-04-01] MEDS ORDERED: ASPIRIN 81 MG PO SCH (09:00)
[2023-04-01] MEDS ORDERED: LISINOPRIL-HCTZ 20-12.5 MG 1 EACH TAB PO SCH (09:00)
[2023-04-01] MEDS ORDERED: ATORVASTATIN 20 MG TAB PO SCH (09:00)
[2023-04-01] MEDS ORDERED: CALCIUM CARB-VIT D 500 MG-5 MCG TAB PO SCH (09:00)
[2023-04-01] MEDS ORDERED: VIT A,C & E-LUTEIN-MINERALS 1 EACH TAB PO SCH (09:00)
[2023-04-01] MEDS ORDERED: NON FORMULARY DRUG (Omega-3/Dha/Epa/Fish Oil [Fish Oil 500 Mg Softgel] 1 EACH Capsule) PO SCH (09:00)
[2023-04-01] MEDS ORDERED: MAGNESIUM OXIDE 400 MG TAB PO SCH (09:00)
[2023-04-01] MEDS ORDERED: DESVENLAFAXINE SUCCINATE 50 MG TAB.ER.24H PO SCH (09:00)
[2023-04-01 09:34] LABS: Basophils % (A) 0 %; Eosinophils # (A) 0.2 k/uL (0-0.7); Eosinophils % (A) 3 %; HCT 31.1 % (34.0-46.0); HGB 9.9 gm/dL (11.4-16.0); Lymphocytes # (A) 1.6 k/uL (1.0-4.8); Lymphocytes % (A) 23 %; MCH 27.6 pg (25.0-35.0); MCHC 31.9 g/dL (31.0-37.0); MCV 86.7 fL (80.0-100.0); Mean Platelet Volume 8.1; Monocytes # (A) 0.3 k/uL (0-1.0); Monocytes % (A) 5 %; Neutrophils # (A) 4.7 k/uL (1.3-7.7); Neutrophils % (A) 67 %; Platelet Count 257 k/uL (150-450); RBC 3.59 m/uL (3.80-5.40); RDW 14.5 % (11.5-15.5)
[2023-04-01 09:53] LABS: African American GFR (CKD) >90 (>60 ml/min/1.73 sqM); Anion Gap 9 mmol/L; Blood Urea Nitrogen 14 mg/dL (7-17); Carbon Dioxide 27 mmol/L (22-30); Chloride 100 mmol/L (98-107); Glucose 126 mg/dL (74-99); Non-African American GFR(CKD) >90 (>60 ml/min/1.73 sqM); Potassium 3.4 mmol/L (3.5-5.1); Sodium 136 mmol/L (137-145)
[2023-04-01 10:03] VITALS: BP 153/66; PULSE 71; RESP 16
--- NOTE | 2023-04-01 10:11 | P.DS ---
Providers Date of admission: 04/01/23 08:13 Attending physician: Sina Marino Primary care physician: Dakota Muro [facility] Course: The patient is a pleasant 67-year-old female patient was underwent yesterday successful recanalizing chronically occluded right SFA from the left groin approach. The procedure was completed with a good angiographic results and restoring the floor in the right SFA. By the end of the procedure and upon changing the long sheath into short sheath the patient developed an abdominal wall hematoma was reduced with manual pressure. She was seen and evaluated this morning. There is no discrete hematoma she does have extensive bruises involving the left groin and inferior abdominal wall. Otherwise she has a grade pulse in the right posterior tibial artery. The patient is going to be discharged home on anticoagulation and antiplatelet and a statin. I'll follow- up with the patient in a week in the office. Plan - Discharge Summary Discharge Rx Participant: No New Discharge Prescriptions: Continue Calcium Carbonate/Vitamin D3 [Calcium 600-Vit D3 400 Caplet] 1 each PO DAILY Magnesium Oxide [Anderson] 250 mg PO DAILY Desvenlafaxine [Desvenlafaxine ER] 100 mg PO DAILY Rivaroxaban [Xarelto] 2.5 mg PO BID #180 tablet Ruskin-3/Dha/Epa/Fish Oil [Fish Oil 500 mg Softgel] 1 each PO DAILY Simvastatin 40 mg PO DAILY Vit C/E/Zn/Coppr/Lutein/Zeaxan [Preservision Areds 2 Softgel] 1 each PO DAILY Aspirin [Adult Low Dose Aspirin EC] 81 mg PO DAILY Lisinopril-Hctz 20-12.5 mg [Zestoretic 20-12.5] 1 tab PO DAILY Discharge Medication List Calcium Carbonate/Vitamin D3 [Calcium 600-Vit D3 400 Caplet] 1 each PO DAILY 12/30/18 [History] Magnesium Oxide [Anderson] 250 mg PO DAILY 03/17/19 [History] Desvenlafaxine [Desvenlafaxine ER] 100 mg PO DAILY 01/24/20 [History] Rivaroxaban [Xarelto] 2.5 mg PO BID #180 tablet 06/20/20 [Rx] Aspirin [Adult Low Dose Aspirin EC] 81 mg PO DAILY 03/26/23 [History] Lisinopril-Hctz 20-12.5 mg [Zestoretic 20-12.5] 1 tab PO DAILY 03/26/23 [History] [place]kin-3/Dha/Epa/Fish Oil [Fish Oil 500 mg Softgel] 1 each PO DAILY 03/26/23 [History] Simvastatin 40 mg PO DAILY 03/26/23 [History] Vit C/E/Zn/Coppr/Lutein/Zeaxan [Preservision Areds 2 Softgel] 1 each PO DAILY 03/26/23 [History] Follow up Appointment(s)/Referral(s): Sina Marino MD [STAFF PHYSICIAN] - 04/07/23 3:30 pm
== END 2023-04-01 11:09 | disposition home or self-care (01) ==
LOC: CATHCVL 06:31 → 3SCARD 09:27 → CATHCVL 04-01 08:13
PROVIDERS: ADMIT Internal Medicine Interventional Cardiology; ATTEND Internal Medicine Interventional Cardiology
DX: I70.213 Atherosclerosis of native arteries of extremities with intermittent claudication, bilateral legs (principal); T82.856A Stenosis of peripheral vascular stent, initial encounter; S30.1XXA Contusion of abdominal wall, initial encounter; I10 Essential (primary) hypertension; E78.5 Hyperlipidemia, unspecified; F17.200 Nicotine dependence, unspecified, uncomplicated; Z82.49 Family history of ischemic heart disease and other diseases of the circulatory system; Z79.01 Long term (current) use of anticoagulants; Z79.82 Long term (current) use of aspirin; Z79.899 Other long term (current) drug therapy
CPT/HCPCS: 37225; 37252; 80048; 85025; G0378; C1769 ×7; C1894 ×2; C1714; C1725 ×2; C1887; C1753; C2623; J2250; J2720; J2001; J3010; J1644; J1170 ×3; Q9966

== ENCOUNTER → 2025-04-05 | Outpatient (CLI) | payer MEDICARE ==
[2025-04-05 14:52] LABS: Basophils # (A) 0.02 X 10*3/uL (0.00-0.10); Basophils % (A) 0.3 %; Eosinophils # (A) 0.22 X 10*3/uL (0.04-0.35); Eosinophils % (A) 2.8 %; HCT 40.1 % (37.2-46.3); HGB 11.8 g/dL (12.0-15.0); Lymphocytes # (A) 2.37 X 10*3/uL (0.90-5.00); Lymphocytes % (A) 29.6 %; MCH 23.8 pg (27.0-32.0); MCHC 29.4 g/dL (32.0-37.0); MCV 80.8 FL (80.0-97.0); Mean Platelet Volume 10.6 FL (9.5-12.2); Monocytes % (A) 6.3 %; NRBC Per 100 WBC 0 X 10*3/uL (0.00-0.01); Neutrophils # (A) 4.87 X 10*3/uL (1.80-7.70); Neutrophils % (A) 60.7 %; Platelet Count 409 X 10*3/uL (140-440); RBC 4.96 X 10*6/uL (4.10-5.20); RDW 16.6 % (11.5-14.5)
[2025-04-05 15:52] LABS: Chol/HDL Ratio 2.62 Ratio; Creatine Kinase 43 U/L (26-186); LDL Cholesterol,Calculated 53.7 mg/dL (0.0-131.0)
[2025-04-05 15:53] LABS: ALT 13 U/L (8-44); AST 21 U/L (13-35); Albumin/Globulin Ratio 1.33 Ratio (1.60-3.17); Alkaline Phosphatase 107 U/L (41-126); BUN/Creat Ratio 25.62 Ratio (12.00-20.00); Blood Urea Nitrogen 20.5 mg/dL (9.0-27.0); Calcium 9.7 mg/dL (8.7-10.3); Chloride 101 mmol/L (96-109); Glucose 106 mg/dL (70-110); Potassium 3.9 mmol/L (3.5-5.5); Sodium 140 mmol/L (135-145); T4, Free (Free Thyroxine) 1.23 ng/dL (0.80-1.80); Total Bilirubin 0.2 mg/dL (0.3-1.2)
== END | disposition home or self-care (01) ==
LOC: LABWHC1 10:12
PROVIDERS: ATTEND Internal Medicine Interventional Cardiology
DX: Z01.812 Encounter for preprocedural laboratory examination (principal); I70.213 Atherosclerosis of native arteries of extremities with intermittent claudication, bilateral legs; I10 Essential (primary) hypertension; E78.5 Hyperlipidemia, unspecified
CPT/HCPCS: 36415; 80053; 80061; 82550; 84439; 84443; 85025

== ENCOUNTER 2025-04-10 07:04 | Day surgery (SDC) | payer MEDICARE ==
[2025-04-09 08:53] VITALS: BMI 34.1
[~2025-04-10 07:04] MED LIST changes: -ALPRAZolam 0.25 MG TAB PO PRN; +ALPRAZolam 0.5 MG TAB PO PRN; -ASPIRIN 325 MG TAB PO PRN; +HEPARIN SODIUM,PORCINE (1 ML) 2,500 UNIT in SODIUM CHLORIDE 0.9% 250 ML IRRIGATION PRN; -SODIUM CHLORIDE 0.9% 1,000 ML in EMPTY BAG 1 BAG IV ONE; +ZOLPIDEM 5 MG TAB PO PRN
[2025-04-10] MEDS: IV FLUID CONTINUATION 1,000 ML IV ONE (07:23)
[2025-04-10] MEDS: EMPTY BAG 1 BAG with SODIUM CHLORIDE 0.9% 1,000 ML IV SCH (07:24)
[2025-04-10] MEDS: ALPRAZolam 0.25 MG TAB PO PRN (07:34)
[2025-04-10] MEDS: MIDAZOLAM 2 MG/2 ML VIAL IVP ONE ×2 (09:24→10:01)
[2025-04-10] MEDS: LIDOCAINE 1% INJ 10MG/ML (20 ML MDV) SQ ONE (09:26)
[2025-04-10] MEDS: HEPARIN SODIUM,PORCINE 10,000 UNIT in SODIUM CHLORIDE 0.9% 1,000 ML IRRIGATION PRN (09:36)
[2025-04-10] MEDS: HEPARIN SODIUM 1,000 UN/ML (10ML VL) IV ONE (09:43)
[2025-04-10] MEDS: CLOPIDOGREL 75 MG TAB PO ONE (09:47)
[2025-04-10] MEDS: MORPHINE SULFATE 4 MG/ML SYRINGE IVP ONE (10:01)
[2025-04-10] MEDS: VERAPAMIL SYRINGE (5 MG/10 ML) INTRAARTER ONE (10:22)
[2025-04-10] MEDS: SODIUM CHLORIDE 0.9% 500 ML 500 ML with niCARdipine 6.25 MG, NITROGLYCERIN-D5W PMX 0.05... IV ONE (10:30)
[2025-04-10] MEDS ORDERED: NALOXONE 0.4 MG/ML 1 ML VIAL IVP PRN (10:48)
[2025-04-10] MEDS: IOPAMIDOL-370 100ML BTL INJ ONE ×2 (10:48)
--- NOTE | 2025-04-10 10:53 | P.PCN ---
Date of Procedure: 04/10/25 Operative Findings: AN ABDOMINAL AORTOGRAM AND BILATERAL LOWER EXTREMITIES RUNOFF PERFORMING PHYSICIAN: Sina Marino MD PROCEDURE PERFORMED: 1. An abdominal aortogram 2. Bilateral lower extremities runoff 3. Successful balloon angioplasty of the right SFA and right popliteal 4. A gradient measurement across the left common and left external iliac arteries 5. Ultrasound-guided access of the right common femoral artery and left anterior tibial artery INDICATION: Symptomatic 69-year-old female patient with known severe bilateral SFA disease COMPLICATION: None LEVEL OF SEDATION: Moderate was sedation length of 85 minutes APPROACH: Right common femoral artery PROCEDURE DESCRIPTION: After obtaining informed consent and explaining the procedure benefits, risks, and complications, the patient was brought to the cardiac wharf labourer. The right groin was prepped and draped in sterile fashion. The right common femoral artery was cannulated using micropuncture technique, under ultrasound guidance. A micropuncture wire was advanced, and the micropuncture sheath was advanced over the wire, then the micropuncture sheath was exchanged over an 0.35 wire into a 5-Barbadian sheath dilator assembly then the wire and dilator were removed and sheath was flushed. We did an abdominal aortogram and bilateral lower extremities runoff using 5- Barbadian pigtail catheter using a power injection. The catheter was initially placed at the level of the renal arteries, and it was pulled into above the bifurcation of the aorta into right and left common iliac arteries. After that I decided to intervene on the right SFA. Anticoagulation was initiated using heparin with continuous ACT monitoring and subsequently I did exchange my 11 cm sheath into a 6 Barbadian 70 cm sheath using 035 stiff Glidewire and the sheath went up and over using a 035 stiff Glidewire with the backup support of 5 Barbadian rim catheter. Subsequently I wired the SFA and popliteal using a 035 stiff Glidewire and manage balloon angioplasty using 6 mm noncompliant balloon followed by 6 mm drug-coated balloon with final angiogram showing excellent angiographic results and the procedure was completed with no complication The procedure was completed and there was no complications. SELECTIVE PERIPHERAL ANGIOGRAM: The abdominal aorta: Calcified with mild disease only The common iliac arteries: The left common iliac artery appeared to have disease in the range of 60 to 70% appeared to be flow-limiting by Doppler wire The external iliac arteries: Both external appears to have mild to moderate disease only The internal iliac arteries: Both internal's are patent The common femoral arteries: Both common femoral are patent Superficial femoral arteries: Both SFA are occluded Popliteal arteries: Both popliteal appeared to be patent Below the knees: There are 3 vessels runoff below the knee bilaterally CONCLUSION: 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 I did perform successful balloon angioplasty of the left SFA Occluded right SFA POSTPROCEDURE MANAGEMENT: GENERAL MERCHANDISE SALESPERSON of the right SFA and left common iliac artery
--- NOTE | 2025-04-10 11:09 | IR ---
EXAMINATION TYPE: IR cryptanalyst femoral popliteal DATE OF EXAM: 04/10/2025 FLUOROSCOPY left leg pain, 18.2min fluoro, 18.8GYcm2 202 images submitted. [facility], Workstation: [employer] Monitoring [email or web address], 04/10/2025 11:07 AM
[2025-04-10] MEDS ORDERED: NON FORMULARY DRUG (Omega-3/Dha/Epa/Fish Oil [Fish Oil 500 Mg Softgel] 1 EACH Capsule) PO SCH (12:00)
[2025-04-10] MEDS: hydrALAZINE HCL 20 MG/ML 1 ML VIAL IVP STA (13:16)
[2025-04-10] MEDS: HYDROmorphone 1 MG/ML 1 ML SYRINGE IVP STA (13:19)
[2025-04-10] MEDS: VIT A,C & E-LUTEIN-MINERALS 1 EACH TAB PO SCH (15:38)
[2025-04-10] MEDS: MAGNESIUM OXIDE 400 MG TAB PO SCH (15:38)
[2025-04-10] MEDS: CALCIUM CARB-VIT D 500 MG-5 MCG TAB PO SCH (15:39)
[2025-04-10] MEDS: ASPIRIN 81 MG PO SCH (15:39)
[2025-04-10] MEDS: ATORVASTATIN 20 MG TAB PO SCH (16:11)
[2025-04-10] MEDS: DESVENLAFAXINE SUCCINATE 50 MG TAB.ER.24H PO SCH (16:11)
[2025-04-10] MEDS: SODIUM CHLORIDE 0.9% 1,000 ML in EMPTY BAG 1 BAG IV SCH (17:11)
[2025-04-10] MEDS: LISINOPRIL-HCTZ 20-12.5 MG 1 EACH TAB PO SCH (20:58)
[2025-04-11] MEDS: MORPHINE SULFATE 2 MG/ML SYRINGE IVP STA
[2025-04-11 05:14] LABS: Basophils # (A) 0.01 10*3/uL (0.00-0.10); Basophils % (A) 0.1 %; Eosinophils # (A) 0.19 10*3/uL (0.04-0.35); Eosinophils % (A) 2.3 %; HCT 32.8 % (37.2-46.3); HGB 10.5 g/dL (12.0-15.0); Lymphocytes # (A) 1.79 10*3/uL (0.90-5.00); Lymphocytes % (A) 21.5 %; MCH 25.4 pg (27.0-32.0); MCV 79.2 fL (80.0-97.0); Mean Platelet Volume 10.3 fL (9.5-12.2); Monocytes # (A) 0.63 10*3/uL (0.20-1.00); Monocytes % (A) 7.6 %; Neutrophils # (A) 5.67 10*3/uL (1.80-7.70); Neutrophils % (A) 68.1 %; Platelet Count 315 10*3/uL (140-440); RBC 4.14 10*6/uL (4.10-5.20); RDW 16.4 % (11.5-14.5); WBC 8.32 10*3/uL (4.50-10.00)
[2025-04-11 05:24] LABS: African American GFR (CKD) >90 (>60 ml/min/1.73 sqM); Anion Gap 8 mmol/L; Blood Urea Nitrogen 14 mg/dL (7-17); Calcium 9.3 mg/dL (8.4-10.2); Carbon Dioxide 28 mmol/L (22-30); Chloride 100 mmol/L (98-107); Glucose 103 mg/dL (74-99); Non-African American GFR(CKD) >90 (>60 ml/min/1.73 sqM); Potassium 3.2 mmol/L (3.5-5.1); Sodium 136 mmol/L (137-145)
[2025-04-11] MEDS: HYDROmorphone 1 MG/ML 1 ML SYRINGE IVP PRN (10:41)
--- NOTE | 2025-04-11 21:03 | P.PN ---
Progress Note - Text Progress Note Date: 04/11/25 The patient is a pleasant 69-year-old female patient with a past medical history significant for lower extremities PAD with prior angioplasty as well as hypertension and dyslipidemia. She was admitted to the hospital yesterday and underwent successful balloon angioplasty of the left SFA with reduction of stenosis from 100% to 0% with the procedure was performed from the right common femoral artery When she was seen and evaluated this morning. Apparently she did have a hematoma involving the right groin. The hematoma was reduced by manual pressure. Beside that she is hemodynamically stable. She does have mild right groin discomfort. The blood work was reviewed. Vital signs were reviewed as well. I advised the patient to be monitored overnight for additional 24 hours. Will continue monitor the hematoma. Consider discharging the patient home tomorrow if she remains stable
[2025-04-11] MEDS: ALPRAZolam 0.25 MG TAB PO PRN (22:51)
[2025-04-12 02:08] VITALS: RESP 17; TEMP 97.7
[2025-04-12 07:41] VITALS: BP 146/74; PULSE 74
--- NOTE | 2025-04-12 13:33 | P.DS ---
Providers Attending physician: Sina Marino Primary care physician: [facility] Course: The patient is a 69-year-old female patient who underwent recently successful angioplasty of the left SFA complicated by right groin hematoma. The hematoma was reduced with compression pressure as well as FemoStop. She was watched overnight for additional day. She was seen and evaluated this morning. She is asymptomatic and she is stable and she would like to go home. The patient will be discharged home on dual antiplatelet therapy with holding anticoagulation at this point. Plan - Discharge Summary Discharge Rx Participant: No New Discharge Prescriptions: New Clopidogrel [Plavix] 75 mg PO DAILY #90 tablet Continue Calcium Carbonate/Vitamin D3 [Calcium 600-Vit D3 400 Caplet] 1 tab PO DAILY@1200 [place]-3/Dha/Epa/Fish Oil [Fish Oil 500 mg Softgel] 1 cap PO DAILY@1200 Simvastatin 40 mg PO DAILY@1200 Vit C/E/Zn/Coppr/Lutein/Zeaxan [Preservision Areds 2 Softgel] 1 cap PO BRIAN LY@1200 ALPRAZolam [Xanax] 0.25 mg PO BID PRN PRN Reason: Anxiety Aspirin [Adult Low Dose Aspirin EC] 81 mg PO DAILY@1200 Lisinopril-Hctz 20-12.5 mg [Zestoretic 20-12.5] 1 tab PO BID Magnesium 400 mg PO DAILY@1200 Desvenlafaxine Succinate [Pristiq] 100 mg PO DAILY@1200 Tirzepatide [Mounjaro] 2.5 mg SQ PARMAR Discontinued Apixaban [Eliquis] 2.5 mg PO BID Discharge Medication List Calcium Carbonate/Vitamin D3 [Calcium 600-Vit D3 400 Caplet] 1 tab PO DAILY@1200 12/30/18 [History] Aspirin [Adult Low Dose Aspirin EC] 81 mg PO DAILY@1200 03/26/23 [History] Lisinopril-Hctz 20-12.5 mg [Zestoretic 20-12.5] 1 tab PO BID 03/26/23 [History] [place]erry-3/Dha/Epa/Fish Oil [Fish Oil 500 mg Softgel] 1 cap PO DAILY@1200 03/26/23 [History] Simvastatin 40 mg PO DAILY@1200 03/26/23 [History] Vit C/E/Zn/Coppr/Lutein/Zeaxan [Preservision Areds 2 Softgel] 1 cap PO DAILY@1200 03/26/23 [History] Magnesium 400 mg PO DAILY@1200 08/23/23 [History] ALPRAZolam [Xanax] 0.25 mg PO BID PRN 01/08/25 [History] Desvenlafaxine Succinate [Pristiq] 100 mg PO DAILY@1200 01/08/25 [History] Tirzepatide [Mounjaro] 2.5 mg SQ PARMAR 04/09/25 [History] Clopidogrel [Plavix] 75 mg PO DAILY #90 tablet 04/10/25 [Rx] Follow up Appointment(s)/Referral(s): Sina Marino MD [STAFF PHYSICIAN] - 1 Week (OFFICE WILL CALL PATIENT WITH A FOLLOW UP APPOINTMENT DATE/TIME. )
[2025-04-15] MEDS ORDERED: NON FORMULARY DRUG (Tirzepatide [Mounjaro] 2.5 MG/0.5 ML Pen.Injctr) SQ SCH (10:47)
== END 2025-04-12 14:38 | disposition home or self-care (01) ==
LOC: OR 07:04 → EDSTATUS 09:00 → 6NMEDSUR 10:50 → OR 04-12 14:38
PROVIDERS: ATTEND Internal Medicine Interventional Cardiology
DX: I70.213 Atherosclerosis of native arteries of extremities with intermittent claudication, bilateral legs (principal); E78.5 Hyperlipidemia, unspecified; I10 Essential (primary) hypertension; Z79.01 Long term (current) use of anticoagulants; Z79.02 Long term (current) use of antithrombotics/antiplatelets; Z79.82 Long term (current) use of aspirin; Z79.899 Other long term (current) drug therapy; Z87.891 Personal history of nicotine dependence
CPT/HCPCS: 36200; 37224; 75625; 75716; 80048; 85025; 99152; 99153; C1894 ×4; C1769 ×4; C2623; J2250; J2270 ×2; J0360; J1644 ×3; J2003; J1171 ×2; Q9967; J2305

== ENCOUNTER 2025-05-23 06:49 | Day surgery (SDC) | payer MEDICARE ==
[2025-05-23] MEDS: ASPIRIN 81 MG PO STA (07:14)
[2025-05-23] MEDS: EMPTY BAG 1 BAG with SODIUM CHLORIDE 0.9% 1,000 ML IV SCH (07:17)
[2025-05-23 07:26] LABS: Basophils # (A) 0.05 10*3/uL (0.00-0.10); Basophils % (A) 0.4 %; Eosinophils # (A) 0.28 10*3/uL (0.04-0.35); Eosinophils % (A) 2.4 %; HCT 27.2 % (37.2-46.3); Lymphocytes # (A) 2.49 10*3/uL (0.90-5.00); Lymphocytes % (A) 21.7 %; MCH 23.8 pg (27.0-32.0); MCHC 30.5 g/dL (32.0-37.0); MCV 77.9 fL (80.0-97.0); Mean Platelet Volume 9.7 fL (9.5-12.2); Monocytes # (A) 0.76 10*3/uL (0.20-1.00); Monocytes % (A) 6.6 %; Neutrophils # (A) 7.84 10*3/uL (1.80-7.70); Neutrophils % (A) 68.6 %; Platelet Count 516 10*3/uL (140-440); RBC 3.49 10*6/uL (4.10-5.20); RDW 16.8 % (11.5-14.5); WBC 11.46 10*3/uL (4.50-10.00)
[2025-05-23 07:28] LABS: HGB 8.3 g/dL (12.0-15.0)
[2025-05-23] MEDS: IV FLUID CONTINUATION 1,000 ML IV ONE (07:33)
[2025-05-23 07:50] LABS: African American GFR (CKD) >90 (>60 ml/min/1.73 sqM); Anion Gap 10 mmol/L; Blood Urea Nitrogen 19 mg/dL (7-17); Calcium 9.4 mg/dL (8.4-10.2); Carbon Dioxide 25 mmol/L (22-30); Chloride 105 mmol/L (98-107); Glucose 120 mg/dL (74-99); Non-African American GFR(CKD) 85 (>60 ml/min/1.73 sqM); Potassium 3.8 mmol/L (3.5-5.1); Sodium 140 mmol/L (137-145)
[2025-05-23] MEDS: MIDAZOLAM 2 MG/2 ML VIAL IVP ONE ×2 (08:53→10:58)
[2025-05-23] MEDS: LIDOCAINE 1% INJ 10MG/ML (30 ML VIAL-PF) SQ ONE (09:04)
[2025-05-23] MEDS: HEPARIN SODIUM 1,000 UN/ML (10ML VL) IVP ONE (09:04)
[2025-05-23] MEDS: HYDROmorphone 0.5 MG/0.5 ML SYRINGE IVP ONE ×3 (09:05→10:44)
[2025-05-23] MEDS: VERAPAMIL SYRINGE (5 MG/10 ML) INTRAARTER ONE (09:05)
[2025-05-23] MEDS: SODIUM CHLORIDE 0.9% 500 ML 500 ML with niCARdipine 6.25 MG, NITROGLYCERIN-D5W PMX 0.05... IV ONE ×2 (09:16→18:06)
[2025-05-23] MEDS: MORPHINE SULFATE 4 MG/ML SYRINGE IVP ONE ×2 (09:30)
[2025-05-23] MEDS: NITROGLYCERIN 1000MCG/10ML SYRINGE INTRAARTER ONE (11:07)
[2025-05-23] MEDS: niCARdipine Syringe (1,000 mcg/10 mL) INTRAARTER ONE (11:08)
[2025-05-23] MEDS: FLUMAZENIL 0.1 MG/ML 5 ML VIAL IVP ONE (11:08)
[2025-05-23] MEDS: CLOPIDOGREL 75 MG TAB PO ONE (11:10)
[2025-05-23] MEDS: IOPAMIDOL-300 100ML BTL INJ ONE (11:11)
[2025-05-23] MEDS ORDERED: ALPRAZolam 0.25 MG TAB PO PRN (11:22)
[2025-05-23] MEDS ORDERED: NALOXONE 0.4 MG/ML 1 ML VIAL IVP PRN (11:22)
[2025-05-23] MEDS: SODIUM CHLORIDE 0.9% 1,000 ML in EMPTY BAG 1 BAG IV SCH (11:23)
--- NOTE | 2025-05-23 11:30 | P.PCN ---
Date of Procedure: 05/23/25 Operative Findings: PERCUTANEOUS PERIPHERAL INTERVENTION Performing physician Sina Marino M.D. Procedure performed 1. Successful ASSOCIATE PROFESSOR PHYSICIAN and stenting of the right SFA with reduction of stenosis from 100% to 0% 2. Adjunctive use of IVUS and atherectomy (Hawk 1) 3. Right lower extremity angiogram 4. Ultrasound-guided access of the right radial artery and right anterior tibial artery Indication Symptomatic 71-year-old female patient with known occluded right SFA Approach Right radial artery and right anterior tibial artery Complications None Level of sedation Moderate with a sedation time of 2 hours and 13 minutes Procedure description After obtaining informed consent the patient was brought to the cardiac Chair Upholsterer. The right radial artery was cannulated using micropuncture technique under ultrasound guidance the micropuncture wire passed easily then I placed a 5 Yemeni 11 cm sheath at the right radial artery and give the patient 2 mg of verapamil intra-arterial and 5000 units of heparin intravenous with continuous ACT monitoring. Subsequently I did access the right anterior tibial artery using micropuncture technique under ultrasound guidance and subsequently placed a slender 5/6 Yemeni sheath at the right anterior tibial artery with the SideArm of the sheath was connected into a cocktail including heparin and verapamil and nitroglycerin. Again anticoagulation systemically was given using heparin as described above with continuous ACT monitoring. Attempting crossing the DIRECTOR ENGINEERING of the right SFA in retrograde technique was unsuccessful. It was successful crossing the DIRECTOR ENGINEERING in antegrade technique coming from the right radial artery. Subsequently the wire was snared from above. I was able to cross the DIRECTOR ENGINEERING using a 35 stiff Glidewire with the backup support of 035 catheter. After that I did snare the wire from below and subsequently I placed an 014 wire. IVUS was performed and showed that I was in the true lumen in the stent as well as outside the stent in the Denovo segment. Subsequently I did atherectomy using the Hawk 1 device with extraction of significant amount of plaque. The atherectomy was performed only on the Denovo lesion. Subsequently balloon angioplasty was performed using 5 mm noncompliant balloon and that was a mayra balloon. Stenting of the Denovo segment was performed because angiographic results were unsatisfactory. I did stent the Denovo segment using 7.0 x 120 mm Zilver PTX drug-coated stent which was postdilated using 6 mm balloon. After that DCB balloon for the area or segment above the stent was performed as well as for the area below the stent was performed. Final angiogram showed excellent angiographic results. I did right lower extremity angiogram by the end which showed three-vessel runoff below the knee with a good angiographic results of the right SFA and right popliteal and the patient tolerated the procedure very well Postprocedure management 1. Dual antiplatelet therapy 2. Aggressive cholesterol control 3. Risk factors modification 4. Follow-up with the patient
--- NOTE | 2025-05-23 11:55 | IR ---
EXAMINATION TYPE: IR stent intravas non coronary DATE OF EXAM: 05/23/2025 FLUOROSCOPY LT LEG PAIN, 72.2 MIN Arteriogram intervention lower extremity. 588 images are provided. [facility], , 05/23/2025 11:53 AM
[2025-05-23] MEDS: ACETAMINOPHEN TAB 500 MG TAB PO STA (14:16)
[2025-05-23] MEDS: ONDANSETRON 4 MG/2 ML VIAL IVP STA (16:16)
[2025-05-23] MEDS: LISINOPRIL-HCTZ 20-12.5 MG 1 EACH TAB PO SCH (21:16)
[2025-05-24] MEDS: ACETAMINOPHEN TAB 325 MG TAB PO PRN (02:58)
[2025-05-24] MEDS: traZODone HCL 50 MG TAB PO PRN (02:58)
[2025-05-24 06:41] LABS: African American GFR (CKD) 70 (>60 ml/min/1.73 sqM); Non-African American GFR(CKD) 60 (>60 ml/min/1.73 sqM)
[2025-05-24 08:42] VITALS: BP 119/48; PULSE 75; RESP 18; TEMP 98
[2025-05-24] MEDS: ASPIRIN 81 MG PO SCH (08:50)
[2025-05-24] MEDS: ATORVASTATIN 20 MG TAB PO SCH (08:50)
[2025-05-24] MEDS: CALCIUM CARB-VIT D 500 MG-5 MCG TAB PO SCH (08:50)
[2025-05-24] MEDS: CLOPIDOGREL 75 MG TAB PO SCH (08:51)
[2025-05-24] MEDS: DESVENLAFAXINE SUCCINATE 50 MG TAB.ER.24H PO SCH (08:52)
[2025-05-24] MEDS: VIT A,C & E-LUTEIN-MINERALS 1 EACH TAB PO SCH (08:53)
[2025-05-24] MEDS: MAGNESIUM OXIDE 400 MG TAB PO SCH (08:53)
[2025-05-24] MEDS ORDERED: NON FORMULARY DRUG (Omega-3/Dha/Epa/Fish Oil [Fish Oil 500 Mg Softgel] 1 EACH Capsule) PO SCH (09:00)
[2025-05-24] MEDS: MORPHINE SULFATE 2 MG/ML SYRINGE IVP STA (09:37)
[2025-05-27] MEDS ORDERED: NON FORMULARY DRUG (Tirzepatide [Mounjaro] 2.5 MG/0.5 ML Pen.Injctr) SQ SCH (09:00)
== END 2025-05-24 12:09 | disposition home or self-care (01) ==
LOC: CATHCVL 06:49 → 6NMEDSUR 11:15 → CATHCVL 05-24 12:09
PROVIDERS: ATTEND Internal Medicine Interventional Cardiology
DX: I70.213 Atherosclerosis of native arteries of extremities with intermittent claudication, bilateral legs (principal); I10 Essential (primary) hypertension; E78.5 Hyperlipidemia, unspecified; Z87.891 Personal history of nicotine dependence; Z79.82 Long term (current) use of aspirin; Z79.899 Other long term (current) drug therapy
CPT/HCPCS: 37227; 37252; 76937; 80048; 82565; 85025; 93005

== ENCOUNTER 2025-05-28 20:06 | Inpatient (IN) | payer MEDICARE ==
--- NOTE | 2025-05-28 21:08 | ED ---
Recheck HPI - General Chief Complaint: Recheck/Abnormal Lab/Rx Stated Complaint: Abnormal Labs Time Seen by Provider: 05/28/25 20:34 Source: patient, RN notes reviewed, old records reviewed Mode of arrival: ambulatory Limitations: no limitations - History of Present Illness Initial Comments: This is a 70-year-old female to the ER for evaluation of anemia. Patient recently had arterial surgery with Dr. Finley and outpatient lab testing showing low hemoglobin, patient feeling lightheaded and dizzy has been feeling weak and short of breath and is having significant bruising of the right lower extremity, on Plavix Complaint: abnormal lab (anemia) Returns Today for: Called Because of Abnormal Lab/Test, persistent/worsening pain related to initial visit Symptoms Since Prior Visit: no new symptoms Associated Symptoms: none Treatments Prior to Arrival: other (0) - Related Data Home Medications Medication Instructions Recorded Confirmed Calcium Carbonate/Vitamin D3 1 tab PO DAILY 12/30/18 05/29/25 [Calcium 600-Vit D3 400 Caplet] Lisinopril-Hctz 20-12.5 mg 2 tab PO DAILY 03/26/23 05/29/25 [Zestoretic 20-12.5] [place]-3/Dha/Epa/Fish Oil [Fish Oil 1 cap PO DAILY 03/26/23 05/29/25 500 mg Softgel] Simvastatin 40 mg PO DAILY 03/26/23 05/29/25 Vit C/E/Zn/Coppr/Lutein/Zeaxan 1 cap PO DAILY 03/26/23 05/29/25 [Preservision Areds 2 Softgel] Magnesium 400 mg PO DAILY 08/23/23 05/29/25 ALPRAZolam [Xanax] 0.25 mg PO BID PRN 01/08/25 05/29/25 Desvenlafaxine Succinate [Pristiq] 100 mg PO DAILY 01/08/25 05/29/25 Tirzepatide [Mounjaro] 2.5 mg SQ PARMAR 04/09/25 05/29/25 traZODone HCL [Desyrel] 50 mg PO HS PRN 05/21/25 05/29/25 Previous Rx's Medication Instructions Recorded Clopidogrel [Plavix] 75 mg PO DAILY #90 tablet 04/10/25 Ferrous Sulfate [Iron (65 MG 325 mg PO W/LUNCH 30 Days #30 tab 05/29/25 Elemental)] Pantoprazole [Protonix] 40 mg PO AC-BRKFST 30 Days #30 tab 05/29/25 Allergies Allergy/AdvReac Type Severity Reaction Status Date / Time No Known Allergies Allergy Verified 05/29/25 09:25 Review of Systems ROS Statement: Those systems with pertinent positive or pertinent negative responses have been documented in the HPI. ROS Other: All systems not noted in ROS Statement are negative. Past Medical History Past Medical History: Hyperlipidemia, Hypertension, Vascular Disorder Additional Past Medical History / Comment(s): pain w/walking any distance, taking mounjaro for weight loss, History of Any Multi-Drug Resistant Organisms: MRSA Date of last positivie culture/infection: 05/25/16 MDRO Source:: LEFT LEG Past Surgical History: Appendectomy, Joint Replacement, Orthopedic Surgery Additional Past Surgical History / Comment(s): Aortagrams and bilateral PTBA with atherectomy, Rt. TKA, balloon angioplasty Lt. leg, colonoscopy, balloon angioplasty Rt. leg Past Anesthesia/Blood Transfusion Reactions: No Reported Reaction Past Psychological History: Anxiety, Depression Smoking Status: Former smoker Past Alcohol Use History: Occasional Past Drug Use History: Marijuana - Past Family History Sister(s) Family Medical History: Cancer Additional Family Medical History / Comment(s): Breast cancer. General Exam Limitations: no limitations General appearance: alert, in no apparent distress, anxious Head exam: Present: atraumatic, normocephalic, normal inspection Eye exam: Present: normal appearance, PERRL, EOMI. Absent: scleral icterus, conjunctival injection, periorbital swelling ENT exam: Present: normal exam, mucous membranes moist Neck exam: Present: normal inspection. Absent: tenderness, meningismus, lymphadenopathy Respiratory exam: Present: normal lung sounds bilaterally. Absent: respiratory distress, wheezes, rales, rhonchi, stridor Cardiovascular Exam: Present: normal rhythm, tachycardia, normal heart sounds. Absent: systolic murmur, diastolic murmur, rubs, gallop, clicks GI/Abdominal exam: Present: soft, normal bowel sounds. Absent: distended, tenderness, guarding, rebound, rigid Extremities exam: Present: normal inspection, full ROM, normal capillary refill. Absent: tenderness, pedal edema, joint swelling, calf tenderness Back exam: Present: normal inspection Neurological exam: Present: alert, oriented X3, CN II-XII intact Psychiatric exam: Present: normal affect, normal mood Skin exam: Present: warm, dry, intact, normal color. Absent: rash Course Vital Signs 05/28/25 05/28/25 05/28/25 20:13 22:35 23:48 Temperature 98.2 F 99.0 F Pulse Rate 102 H 76 73 Pulse Rate [ Patient Safety Officer ] Respiratory 18 16 16 Rate Blood Pressure 104/72 163/56 140/53 Blood Pressure [Right Arm] O2 Sat by Pulse 98 97 95 Oximetry 05/29/25 05/29/25 05/29/25 00:04 00:24 01:44 Temperature 98.9 F 98.9 F Pulse Rate 74 72 71 Pulse Rate [ Patient Safety Officer ] Respiratory 16 16 18 Rate Blood Pressure 120/58 141/50 146/54 Blood Pressure [Right Arm] O2 Sat by Pulse 95 96 97 Oximetry 05/29/25 05/29/25 05/29/25 03:00 03:10 04:48 Temperature 98.8 F 98.0 F 98 F Pulse Rate 79 82 72 Pulse Rate [ Patient Safety Officer ] Respiratory 18 16 16 Rate Blood Pressure 157/77 157/77 158/77 Blood Pressure [Right Arm] O2 Sat by Pulse 97 97 98 Oximetry 05/29/25 05/29/25 05/29/25 05:32 06:27 09:00 Temperature 98.3 F Pulse Rate 79 75 Pulse Rate [ 72 Patient Safety Officer ] Respiratory 18 16 18 Rate Blood Pressure 168/74 167/65 Blood Pressure 139/46 [Right Arm] O2 Sat by Pulse 95 95 98 Oximetry 05/29/25 05/29/25 12:00 16:00 Temperature 97.8 F Pulse Rate 71 Pulse Rate [ 68 Patient Safety Officer ] Respiratory 20 16 Rate Blood Pressure 145/54 Blood Pressure 154/59 [Right Arm] O2 Sat by Pulse 98 95 Oximetry - Reevaluation(s) Reevaluation #1: 05/28/25 22:23 Medical records reviewed Reevaluation #2: 05/28/25 22:23 Patient still feels weak lightheaded and dizzy Reevaluation #3: 05/28/25 22:23 Patient informed of results and questions answered Reevaluation #4: Was pt. sent in by a medical professional or institution (, PA, SUPERVISORY FORESTER, urgent care, hospital, or senior care...) When possible be specific @ -no Did you speak to anyone other than the patient for history (EMS, parent, family, police, friend...)? What history was obtained from this source @ -no Did you review nursing and triage notes (agree or disagree)? Why? @ -agree Are old charts reviewed (outside hosp., previous admission, EMS record, old EKG, old radiological studies, urgent care reports/EKG's, senior care records)? Report findings @ -yes Differential Diagnosis (chest pain, altered mental status, abdominal pain women, abdominal pain men, vaginal bleeding, weakness, fever, dyspnea, syncope, headache, dizziness, GI bleed, back pain, seizure, CVA, palpatations, mental health, musculoskeletal)? @ -prior EKG interpreted by me (3pts min.). @ -no X-rays interpreted by me (1pt min.). @ -no CT interpreted by me (1pt min.). @ -no U/S interpreted by me (1pt. min.). @ -no What testing was considered but not performed or refused? (CT, X-rays, U/S, labs)? Why? @ -none What meds were considered but not given or refused? Why? @ -none Did you discuss the management of the patient with other professionals (professionals i.e. , PA, SUPERVISORY FORESTER, lab, RT, psych nurse, social services, tiller man, teacher, physics technical officer, catalytic case operator)? Give summary @ -no Was smoking cessation discussed for >3mins.? @ -no Was critical care preformed (if so, how long)? @ -no Were there social determinants of health that impacted care today? How? (Homelessness, low income, unemployed, alcoholism, drug addiction, transportation, low edu. Level, literacy, decrease access to med. care, shelter, rehab)? @ -none Was there de-escalation of care discussed even if they declined (Discuss DNR or withdrawal of care, Hospice)? DNR status @ -no What co-morbidities impacted this encounter? (DM, HTN, Smoking, COPD, CAD, Cancer, CVA, ARF, Chemo, Hep., AIDS, mental health diagnosis, sleep apnea, m orbid obesity)? @ -none Was patient admitted / discharged? Hospital course, mention meds given and route, prescriptions, significant lab abnormalities, going to OR and other pertinent info. @ - 70 female to the ER for evaluation patient [facility] for evaluation of anemia outpatient anemia feels weak and dizzy patient admitted for transfusion and further evaluation management Admitted Undiagnosed new problem with uncertain prognosis? @ -no Drug Therapy requiring intensive monitoring for toxicity (Heparin, Nitro, Insulin, Cardizem)? @ -no Were any procedures done? @ -no Diagnosis/symptom? @ -Anemia Weak and Dizzy extremes of age Acute, or Chronic, or Acute on Chronic? @ -Acute Uncomplicated (without systemic symptoms) or Complicated (systemic symptoms)? @ -Complicated Side effects of treatment? @ -no Exacerbation, Progression, or Severe Exacerbation? @ -exacerbation Poses a threat to life or bodily function? How? (Chest pain, USA, HI, pneumonia, PE, COPD, DKA, ARF, appy, cholecystitis, CVA, Diverticulitis, Homicidal, Suicidal, threat to staff... and all critical care pts) @ -yes 06/04/25 18:14 Reevaluation #5: Differential Weakness: Hypoglycemia, shock, sepsis, hyponatremia, anemia, infection, HI, ETOH, adverse medicine reaction, overdose, stroke, this is not meant to be an all-inclusive list. - Consultations Consultation #1: Spoke with sound who agrees to admit this patient Medical Decision Making - Medical Decision Making 70 female to the ER for evaluation patient [facility] for evaluation of anemia outpatient anemia feels weak and dizzy patient admitted for transfusion and further evaluation management - Lab Data Result diagrams: 05/29/25 17:54 05/29/25 06:40 Lab Results 05/28/25 05/28/25 05/28/25 Range/Units 20:30 21:08 21:08 WBC 11.41 H (4.50-10.00) 10*3/uL RBC 2.92 L (4.10-5.20) 10*6/uL Hgb 6.8 L* D (12.0-15.0) g/dL Hct 22.9 L (37.2-46.3) % MCV 78.4 L (80.0-97.0) fL MCH 23.3 L (27.0-32.0) pg MCHC 29.7 L (32.0-37.0) g/dL Plt Count 552 H (140-440) 10*3/uL MPV 10.4 (9.5-12.2) fL Immature Gran % (Auto) 1.1 % Neutrophils % 67.5 % Lymphocytes % 20.2 % Monocytes % 8.4 % Eosinophils % 2.4 % Basophils % 0.4 % Immature Gran # 0.12 H (0.00-0.04) 10*3/uL Neutrophils # 7.70 (1.80-7.70) 10*3/uL Lymphocytes # 2.31 (0.90-5.00) 10*3/uL Monocytes # 0.96 (0.20-1.00) 10*3/uL Eosinophils # 0.27 (0.04-0.35) 10*3/uL Basophils # 0.05 (0.00-0.10) 10*3/uL PT 10.5 (10.0-12.5) sec INR 0.9 (<1.2) APTT 22.1 (22.0-30.0) sec Sodium (137-145) mmol/L Potassium (3.5-5.1) mmol/L Chloride (98-107) mmol/L Carbon Dioxide (22-30) mmol/L Anion Gap mmol/L BUN (7-17) mg/dL Creatinine (0.52-1.04) mg/dL Est GFR (CKD-EPI)AfAm (>60 ml/min/1.73 sqM) Est GFR (CKD-EPI)NonAf (>60 ml/min/1.73 sqM) Glucose (74-99) mg/dL Calcium (8.4-10.2) mg/dL Phosphorus (2.5-4.5) mg/dL Magnesium (1.6-2.3) mg/dL Total Bilirubin (0.2-1.3) mg/dL AST (14-36) U/L ALT (4-34) U/L Alkaline Phosphatase (38-126) U/L Troponin I (0.000-0.034) ng/mL NT-Pro-B Natriuret Pep pg/mL Total Protein (6.3-8.2) g/dL Albumin (3.5-5.0) g/dL Blood Type B Positive Blood Type Confirm Blood Type Recheck No Previous Record Bld Type Recheck Status CABO Indicated Antibody Screen NEGATIVE Crossmatch See Detail Spec Expiration Date 05/31/2025232905/28/25 05/28/25 05/28/25 Range/Units 21:08 21:08 21:22 WBC (4.50-10.00) 10*3/uL RBC (4.10-5.20) 10*6/uL Hgb (12.0-15.0) g/dL Hct (37.2-46.3) % MCV (80.0-97.0) fL MCH (27.0-32.0) pg MCHC (32.0-37.0) g/dL Plt Count (140-440) 10*3/uL MPV (9.5-12.2) fL Immature Gran % (Auto) % Neutrophils % % Lymphocytes % % Monocytes % % Eosinophils % % Basophils % % Immature Gran # (0.00-0.04) 10*3/uL Neutrophils # (1.80-7.70) 10*3/uL Lymphocytes # (0.90-5.00) 10*3/uL Monocytes # (0.20-1.00) 10*3/uL Eosinophils # (0.04-0.35) 10*3/uL Basophils # (0.00-0.10) 10*3/uL PT (10.0-12.5) sec INR (<1.2) APTT (22.0-30.0) sec Sodium 134 L (137-145) mmol/L Potassium 3.9 (3.5-5.1) mmol/L Chloride 96 L (98-107) mmol/L Carbon Dioxide 26 (22-30) mmol/L Anion Gap 12 mmol/L BUN 22 H (7-17) mg/dL Creatinine 0.83 (0.52-1.04) mg/dL Est GFR (CKD-EPI)AfAm 82 (>60 ml/min/1.73 sqM) Est GFR (CKD-EPI)NonAf 71 (>60 ml/min/1.73 sqM) Glucose 126 H (74-99) mg/dL Calcium 10.5 H (8.4-10.2) mg/dL Phosphorus 5.0 H (2.5-4.5) mg/dL Magnesium 1.6 (1.6-2.3) mg/dL Total Bilirubin 0.9 (0.2-1.3) mg/dL AST 26 (14-36) U/L ALT 12 (4-34) U/L Alkaline Phosphatase 115 (38-126) U/L Troponin I <0.012 (0.000-0.034) ng/mL NT-Pro-B Natriuret Pep 545 pg/mL Total Protein 7.2 (6.3-8.2) g/dL Albumin 3.9 (3.5-5.0) g/dL Blood Type Blood Type Confirm B Positive Blood Type Recheck Bld Type Recheck Status Antibody Screen Crossmatch Spec Expiration Date Disposition Clinical Impression: Anemia, Postoperative anemia, Weakness Disposition: ADMITTED IP TO THIS [facility] Condition: Stable Is patient prescribed a controlled substance at d/c from ED?: No Time of Disposition: 22:20
[2025-05-28 21:27] LABS: Basophils # (A) 0.05 10*3/uL (0.00-0.10); Basophils % (A) 0.4 %; Eosinophils # (A) 0.27 10*3/uL (0.04-0.35); Eosinophils % (A) 2.4 %; HCT 22.9 % (37.2-46.3); Lymphocytes # (A) 2.31 10*3/uL (0.90-5.00); Lymphocytes % (A) 20.2 %; MCH 23.3 pg (27.0-32.0); MCHC 29.7 g/dL (32.0-37.0); MCV 78.4 fL (80.0-97.0); Monocytes # (A) 0.96 10*3/uL (0.20-1.00); Monocytes % (A) 8.4 %; Neutrophils # (A) 7.70 10*3/uL (1.80-7.70); Neutrophils % (A) 67.5 %; Platelet Count 552 10*3/uL (140-440); RBC 2.92 10*6/uL (4.10-5.20); RDW 18.9 % (11.5-14.5); WBC 11.41 10*3/uL (4.50-10.00)
[2025-05-28 21:31] LABS: ALT 12 U/L (4-34); AST 26 U/L (14-36); African American GFR (CKD) 82 (>60 ml/min/1.73 sqM); Albumin 3.9 g/dL (3.5-5.0); Alkaline Phosphatase 115 U/L (38-126); Anion Gap 12 mmol/L; Blood Urea Nitrogen 22 mg/dL (7-17); Calcium 10.5 mg/dL (8.4-10.2); Carbon Dioxide 26 mmol/L (22-30); Chloride 96 mmol/L (98-107); Glucose 126 mg/dL (74-99); Magnesium 1.6 mg/dL (1.6-2.3); Non-African American GFR(CKD) 71 (>60 ml/min/1.73 sqM); Potassium 3.9 mmol/L (3.5-5.1); Sodium 134 mmol/L (137-145); Total Protein 7.2 g/dL (6.3-8.2)
[2025-05-28 21:34] LABS: HGB 6.8 g/dL (12.0-15.0)
[2025-05-28 21:40] LABS: NT-Pro-B-Type Natriuretic Pept 545 pg/mL
[2025-05-28 21:42] LABS: INR 0.9 (<1.2); Partial Thromboplastin Time 22.1 sec (22.0-30.0); Prothrombin Time 10.5 sec (10.0-12.5)
[2025-05-28] MEDS ORDERED: MORPHINE SULFATE 4 MG/ML SYRINGE IV PRN (22:21)
[2025-05-28] MEDS ORDERED: ONDANSETRON 4 MG/2 ML VIAL IVP PRN (22:21)
[2025-05-28] MEDS ORDERED: NALOXONE 0.4 MG/ML 1 ML VIAL IV PRN (22:21)
[2025-05-29] MEDS: LORazepam 1 MG/0.5 ML VIAL IV STA (01:00)
[2025-05-29 07:55] LABS: Basophils # (A) 0.03 10*3/uL (0.00-0.10); Basophils % (A) 0.4 %; Eosinophils # (A) 0.20 10*3/uL (0.04-0.35); Eosinophils % (A) 2.6 %; HCT 25.4 % (37.2-46.3); HGB 7.8 g/dL (12.0-15.0); Lymphocytes # (A) 1.66 10*3/uL (0.90-5.00); Lymphocytes % (A) 21.9 %; MCH 24.9 pg (27.0-32.0); MCHC 30.7 g/dL (32.0-37.0); MCV 81.2 fL (80.0-97.0); Monocytes # (A) 0.71 10*3/uL (0.20-1.00); Monocytes % (A) 9.4 %; Neutrophils # (A) 4.90 10*3/uL (1.80-7.70); Neutrophils % (A) 64.8 %; Platelet Count 414 10*3/uL (140-440); RBC 3.13 10*6/uL (4.10-5.20); RDW 18.2 % (11.5-14.5); WBC 7.57 10*3/uL (4.50-10.00)
[2025-05-29 08:09] LABS: ALT 10 U/L (4-34); AST 21 U/L (14-36); African American GFR (CKD) 89 (>60 ml/min/1.73 sqM); Albumin 3.4 g/dL (3.5-5.0); Alkaline Phosphatase 91 U/L (38-126); Anion Gap 9 mmol/L; Blood Urea Nitrogen 17 mg/dL (7-17); Calcium 9.9 mg/dL (8.4-10.2); Carbon Dioxide 27 mmol/L (22-30); Chloride 102 mmol/L (98-107); Glucose 101 mg/dL (74-99); Magnesium 1.5 mg/dL (1.6-2.3); Non-African American GFR(CKD) 77 (>60 ml/min/1.73 sqM); Potassium 3.9 mmol/L (3.5-5.1); Sodium 138 mmol/L (137-145); Total Protein 6.1 g/dL (6.3-8.2)
[2025-05-29] MEDS: PANTOPRAZOLE 40 MG TABLET PO SCH (09:03)
[2025-05-29] MEDS: ATORVASTATIN 20 MG TAB PO SCH (09:03)
[2025-05-29] MEDS: CLOPIDOGREL 75 MG TAB PO SCH (09:03)
[2025-05-29] MEDS: LISINOPRIL-HCTZ 20-12.5 MG 1 EACH TAB PO SCH (09:03)
[2025-05-29] MEDS: MAGNESIUM SULFATE-D5W PMX 1 GM in DEXTROSE/WATER 1 100ML.BAG IVPB SCH (09:25)
[2025-05-29 12:27] LABS: HCT 24.9 % (37.2-46.3); HGB 7.7 g/dL (12.0-15.0); MCH 25.2 pg (27.0-32.0); MCHC 30.9 g/dL (32.0-37.0); MCV 81.4 fL (80.0-97.0); Platelet Count 418 10*3/uL (140-440); RBC 3.06 10*6/uL (4.10-5.20); RDW 18.6 % (11.5-14.5); WBC 7.24 10*3/uL (4.50-10.00)
--- NOTE | 2025-05-29 13:22 | P.CRDCN ---
History of Present Illness Consult date: 05/29/25 Reason for Consult (text): Anemia History of present illness: This is a 70-year-old female patient of Dr. Marino with past medical history of PAD with prior angioplasty of the bilateral SFA, hypertension, dyslipidemia, history of smoking. 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 Patient had no postprocedure complications and was discharged home with hemoglobin of 8.3. Patient presented to the hospital for evaluation of anemia and found to have outpatient lab work that showed a low hemoglobin. Patient was also having lightheadedness and dizziness and feeling weak in general along with shortness of breath. She denies having any blood in her stool. No blood in her sputum. She denies chest pain or chest pressure. Her initial hemoglobin is 6.8 and she is status post transfusion of 1 unit of packed RBCs. Blood pressure 167/65, heart rate 75, pulse ox 95% on room air. Patient is seen today in the emergency center waiting for a bed on the cardiac stepdown unit. She is status post magnesium replacement. -EKG: -Chest x-ray: -Laboratory studies: Initial hemoglobin 6.8 with repeat 7.7. BUN 17 creatinine 0.77. Troponin negative x 1. proBNP 545. -Home cardiac medications: Aspirin 81 mg daily, Plavix 75 mg daily, lisinopril hydrochlorothiazide 20-12.5 mg 2 tablets daily, magnesium 400 mg daily, omega 3 1 daily, simvastatin 40 mg daily, also on Mounjaro 2.5 mg. Review Of Systems: At the time of my exam: CONSTITUTIONAL: Denies fever or chills. HEENT: Denies blurred vision, vision changes, or eye pain. Denies hemoptysis CARDIOVASCULAR: Denies chest pain. Denies orthopnea. Denies PND. Denies palpitations RESPIRATORY: Denies shortness of breath. GASTROINTESTINAL: Denies abdominal pain. Denies nausea or vomiting. HEMATOLOGIC: Denies bleeding disorders. GENITOURINARY: Denies any blood in urine. SKIN: Denies puritis. Denies rash. Physical examination: Gen: This is 70-year-old female in no acute distress. VS: reviewed HEENT: Head is atraumatic, normocephalic. Pupils equal, round. Sclerae is anicteric. NECK: Supple. No JVD. LUNGS: Clear to auscultation. No wheezes or rhonchi. No intercostal retractions. HEART: Regular rate and rhythm. No murmur. ABDOMEN: Soft No tenderness. EXTREMITIES: No pedal edema. No calf tenderness. NEUROLOGICAL: Patient is awake, alert and oriented x3. Assessment: Anemia, possible acute blood loss anemia following recent procedure, [employer]GER and stenting of the right SFA Chronic anemia Hypertension Dyslipidemia History of smoking. Plan: Resume patient's home cardiac medications but hold aspirin Anemia workup per admitting practitioner Further recommendations to follow based upon clinical course Thank you kindly for this consultation. Nurse practitioner note has been reviewed, I agree with documented findings and plan of care. Patient was seen and examined. Past Medical History Past Medical History: Hyperlipidemia, Hypertension, Vascular Disorder Additional Past Medical History / Comment(s): pain w/walking any distance, ta king jose for weight loss, History of Any Multi-Drug Resistant Organisms: MRSA Date of last positivie culture/infection: 05/25/16 MDRO Source:: LEFT LEG Past Surgical History: Appendectomy, Joint Replacement, Orthopedic Surgery Additional Past Surgical History / Comment(s): Aortagrams and bilateral PTBA with atherectomy, Rt. TKA, balloon angioplasty Lt. leg, colonoscopy, balloon angioplasty Rt. leg Past Anesthesia/Blood Transfusion Reactions: No Reported Reaction Past Psychological History: Anxiety, Depression Smoking Status: Former smoker Past Alcohol Use History: Occasional Past Drug Use History: Marijuana - Past Family History Sister(s) Family Medical History: Cancer Additional Family Medical History / Comment(s): Breast cancer. Medications and Allergies Home Medications Medication Instructions Recorded Confirmed Type Calcium Carbonate/Vitamin D3 1 tab PO DAILY 12/30/18 05/29/25 History [Calcium 600-Vit D3 400 Caplet] Aspirin [Adult Low Dose Aspirin EC] 81 mg PO DAILY 03/26/23 05/29/25 History Lisinopril-Hctz 20-12.5 mg 2 tab PO DAILY 03/26/23 05/29/25 History [Zestoretic 20-12.5] [place]-3/Dha/Epa/Fish Oil [Fish Oil 1 cap PO DAILY 03/26/23 05/29/25 History 500 mg Softgel] Simvastatin 40 mg PO DAILY 03/26/23 05/29/25 History Vit C/E/Zn/Coppr/Lutein/Zeaxan 1 cap PO DAILY 03/26/23 05/29/25 History [Preservision Areds 2 Softgel] Magnesium 400 mg PO DAILY 08/23/23 05/29/25 History ALPRAZolam [Xanax] 0.25 mg PO BID PRN 01/08/25 05/29/25 History Desvenlafaxine Succinate [Pristiq] 100 mg PO DAILY 01/08/25 05/29/25 History Tirzepatide [Mounjaro] 2.5 mg SQ PARMAR 04/09/25 05/29/25 History Clopidogrel [Plavix] 75 mg PO DAILY #90 tablet 04/10/25 05/29/25 Rx traZODone HCL [Desyrel] 50 mg PO HS PRN 05/21/25 05/29/25 History Allergies Allergy/AdvReac Type Severity Reaction Status Date / Time No Known Allergies Allergy Verified 05/29/25 09:25 Physical Exam Vitals: Vital Signs Temp Pulse Resp BP Pulse Ox 05/29/25 06:27 75 16 167/65 95 05/29/25 05:32 98.3 F 79 18 168/74 95 05/29/25 04:48 98 F 72 16 158/77 98 05/29/25 03:10 98.0 F 82 16 157/77 97 05/29/25 03:00 98.8 F 79 18 157/77 97 05/29/25 01:44 71 18 146/54 97 05/29/25 00:24 98.9 F 72 16 141/50 96 05/29/25 00:04 98.9 F 74 16 120/58 95 05/28/25 23:48 99.0 F 73 16 140/53 95 05/28/25 22:35 76 16 163/56 97 05/28/25 20:13 98.2 F 102 H 18 104/72 98 Intake and Output 05/28/25 05/29/25 05/29/25 22:59 06:59 14:59 Intake Total 310 Balance 310 Intake: Blood Product 310 Rc As-1 Unit 310 [id number] Other: Weight 90.718 kg Results 05/29/25 11:39 05/29/25 06:40 Cardiac Enzymes 05/28/25 05/28/25 Range/Units 21:08 21:08 AST 26 (14-36) U/L Troponin I <0.012 (0.000-0.034) ng/mL Coagulation 05/28/25 Range/Units 21:08 PT 10.5 (10.0-12.5) sec APTT 22.1 (22.0-30.0) sec CBC 05/28/25 Range/Units 21:08 WBC 11.41 H (4.50-10.00) 10*3/uL RBC 2.92 L (4.10-5.20) 10*6/uL Hgb 6.8 L* D (12.0-15.0) g/dL Hct 22.9 L (37.2-46.3) % Plt Count 552 H (140-440) 10*3/uL Comprehensive Metabolic Panel 05/28/25 Range/Units 21:08 Sodium 134 L (137-145) mmol/L Potassium 3.9 (3.5-5.1) mmol/L Chloride 96 L (98-107) mmol/L Carbon Dioxide 26 (22-30) mmol/L BUN 22 H (7-17) mg/dL Creatinine 0.83 (0.52-1.04) mg/dL Glucose 126 H (74-99) mg/dL Calcium 10.5 H (8.4-10.2) mg/dL AST 26 (14-36) U/L ALT 12 (4-34) U/L Alkaline Phosphatase 115 (38-126) U/L Total Protein 7.2 (6.3-8.2) g/dL Albumin 3.9 (3.5-5.0) g/dL Current Medications Generic Name Dose Route Start Last Admin Trade Name Freq PRN Reason Stop Dose Admin Morphine Sulfate 4 mg 05/28/25 22:21 Morphine Sulfate 4 Mg/Ml Syringe IV Q4HR PRN Severe Pain (Scale 7 to 10) Naloxone HCl 0.2 mg 05/28/25 22:21 Naloxone 0.4 Mg/Ml 1 Ml Vial IV Q2M PRN Opioid Reversal Ondansetron HCl 4 mg 05/28/25 22:21 Ondansetron 4 Mg/2 Ml Vial IVP Q8HR PRN Nausea And Vomiting Trazodone HCl 100 mg 05/29/25 00:45 05/29/25 01:01 Trazodone Hcl 100 Mg Tab PO 100 mg HS ORIANA Administration Intake and Output 05/28/25 05/29/25 05/29/25 22:59 06:59 14:59 Intake Total 310 Balance 310 Intake: Blood Product 310 Rc As-1 Unit 310 [id number] Other: Weight 90.718 kg 05/28/25 21:08 05/28/25 21:08
[2025-05-29] MEDS ORDERED: ALPRAZolam 0.25 MG TAB PO PRN (13:28)
--- NOTE | 2025-05-29 14:15 | P.HPIM ---
History of Present Illness H&P Date: 05/29/25 History of Presenting Illness: Patient is a very pleasant 70-year-old female with a past medical history of hypertension, hyperlipidemia, anxiety with depression, and peripheral arterial disease status post aortogram and bilateral atherectomy and balloon angioplasty with successful stenting of right SFA on 05/23/2025. Pt was experiencing some bruising on her extremities, shortness of breath, dizziness and lightheadedness and went for follow up appointment with Dr. Marino and was sent for follow up lab work. Pt reports that she received a phone call telling her that her hemoglobin was low and she needed to go to the hospital for further evaluation. Upon arrival to our facility, pt underwent evaluation in the Emergency Departnent. Vital signs upon arrival show blood pressure 104/72, heart rate 102, respiratory rate 18, temp 98.2 F, and SpO2 of 98% on room air. EKG was completed showing normal sinus rhythm at 71 bpm with a right bundle branch block. Labs completed and reviewed. CBC showing leukocytosis with WBC count of 11.41 and microcytic anemia with hemoglobin of 6.8, hematocrit 22.9, MCV of 78.4, MCH of 23.3 MCHC 29.7, and thrombocytosis with platelet count of 552. BMP showing hypochloremic hyponatremia with chloride of 96 and sodium of 134 and slightly elevated BUN of 22. Blood glucose was 122. Calcium was elevated at 10.5. Magnesium was low at 1.6. Liver profile unremarkable. Troponin was negative at less than 0.012 and proBNP was 545. Patient was transfused 1 unit PRBCs and admitted under our services with consultation to cardiology. Repeat hemoglobin status post PRBC transfusion is 7.8. Patient seen and fully evaluated at bedside. She currently denies feeling short of breath but does report mild continuation of dizziness/lightheadedness since arrival to our facility and states mild improvement since receiving blood transfusion. She denies having any headache, no chest pain, palpitations, shortness of breath, cough or congestion, abdominal pain or discomfort, nausea, vomiting, hematemesis, melena, hematochezia, or hematuria. Review of systems: Pertinent positives and negatives as discussed in HPI, a complete review of systems was performed and all other systems are negative. Physical exam: Vital signs reviewed and stable. General: Nontoxic, no distress and appears stated age. Derm: Skin warm and dry, normal coloration for ethnicity. Head: Atraumatic, normocephalic and symmetric. Eyes: EOM's intact, no lid lag, and anicteric sclera Mouth: no lip lesions, mucus membranes moist Cardiovascular: regular rate and rhythm with normal S1S2, soft systolic murmur, positive posterior tibial pulses bilaterally, and cap refill < 2 seconds. Lungs: Respirations even, regular, and unlabored on room air. Lungs CTA bilaterally, no rhonchi, no rales, no wheezing, and no accessory muscle usage. Abdominal: soft, nontender to palpation, no guarding, no appreciable organomegaly Ext: ROM intact. No gross muscle atrophy, no edema, no contractures Neuro: Speech clear, face symmetrical and CN II-XII grossly intact with no noted focal neuro deficits Psych: Alert and oriented to person, place, time, and situation. Appropriate and pleasant affect. Assessment and Plan of Care: Symptomatic anemia Acute anemia on chronic iron deficiency anemia -Patient with longstanding history of chronic microcytic anemia with baseline hemoglobin around 9.5 dating back to 2019. She was recently underwent aortogram with angioplasty and stenting of right SFA on 05/23/2025 and discharged home on dual antiplatelet therapy with aspirin and Plavix. Patient then developed noted bruising on extremities, shortness of breath, dizziness and lightheadedness and was found to have a low hemoglobin. - Hemoglobin upon arrival 6.8. Status post 1 unit PRBCs hemoglobin currently 7.8. - Aspirin held per cardiology and patient to continue with Plavix 75 mg daily. - Hemoglobin every 6 hours and transfuse as needed for hemoglobin less than 7. - Unable to repeat iron profile as patient already received transfusion of PRBCs at time of admission, however previous iron profile completed 01/08/2025 showing total iron of 15, TIBC of 470, iron percentage saturation 3.19, ferritin 59.6 and transferrin of 336. - Will start patient on ferrous sulfate 325 mg daily. - Telemetry monitoring - GI prophylaxis with Protonix 40 mg daily. - Recommend outpatient follow-up in 3-4 weeks with hematology for further evaluation of your chronic iron deficiency anemia, unable to obtain iron profile at this time secondary to patient receiving transfusion in ED. Hypomagnesemia Magnesium 1.5. Orders placed for magnesium sulfate 2 g IVPB x 1 dose. Will continue to monitor with repeat a.m. labs and replace abnormal electrolyte values as indicated based upon these findings. Peripheral arterial Disease Hypertension Hyperlipidemia - Cardiology following holding aspirin recommending continuation of Plavix 75 mg daily. Monitor vital signs and continue daily medication regimen with Plavix 75 mg daily, atorvastatin 20 mg daily, and lisinopril/hydrochlorothiazide 20-12.5 mg twice daily. Data and imaging reviewed: As stated above in HPI. The patient is admitted with an anticipated greater than 2 midnight stay for evaluation of symptomatic anemia CODE STATUS: Full code DVT prophylaxis: PHAM davis/Aren Anticipated discharge date: Pending clinical course Anticipated discharge place: Home Patient was seen independently by Nurse Practitioner. This document was prepared using Ac[employer] dictation software. Please allow for errors in notch machine operator while rare they do occur. Yosi Branham NP rendered care for this patient independently, reviewed the findings and plan as documented in the note above and agree with plan. I did not physically speak with or examine the patient on this date. Past Medical History Past Medical History: Hyperlipidemia, Hypertension, Vascular Disorder Additional Past Medical History / Comment(s): pain w/walking any distance, taking mounjaro for weight loss, History of Any Multi-Drug Resistant Organisms: MRSA Date of last positivie culture/infection: 05/25/16 MDRO Source:: LEFT LEG Past Surgical History: Appendectomy, Joint Replacement, Orthopedic Surgery Additional Past Surgical History / Comment(s): Aortagrams and bilateral PTBA with atherectomy, Rt. TKA, balloon angioplasty Lt. leg, colonoscopy, balloon angioplasty Rt. leg Past Anesthesia/Blood Transfusion Reactions: No Reported Reaction Past Psychological History: Anxiety, Depression Smoking Status: Former smoker Past Alcohol Use History: Occasional Past Drug Use History: Marijuana - Past Family History Sister(s) Family Medical History: Cancer Additional Family Medical History / Comment(s): Breast cancer. Medications and Allergies Home Medications Medication Instructions Recorded Confirmed Type Calcium Carbonate/Vitamin D3 1 tab PO DAILY 12/30/18 05/29/25 History [Calcium 600-Vit D3 400 Caplet] Aspirin [Adult Low Dose Aspirin EC] 81 mg PO DAILY 03/26/23 05/29/25 History Lisinopril-Hctz 20-12.5 mg 2 tab PO DAILY 03/26/23 05/29/25 History [Zestoretic 20-12.5] [place]-3/Dha/Epa/Fish Oil [Fish Oil 1 cap PO DAILY 03/26/23 05/29/25 History 500 mg Softgel] Simvastatin 40 mg PO DAILY 03/26/23 05/29/25 History Vit C/E/Zn/Coppr/Lutein/Zeaxan 1 cap PO DAILY 03/26/23 05/29/25 History [Preservision Areds 2 Softgel] Magnesium 400 mg PO DAILY 08/23/23 05/29/25 History ALPRAZolam [Xanax] 0.25 mg PO BID PRN 01/08/25 05/29/25 History Desvenlafaxine Succinate [Pristiq] 100 mg PO DAILY 01/08/25 05/29/25 History Tirzepatide [Mounjaro] 2.5 mg SQ PARMAR 04/09/25 05/29/25 History Clopidogrel [Plavix] 75 mg PO DAILY #90 tablet 04/10/25 05/29/25 Rx traZODone HCL [Desyrel] 50 mg PO HS PRN 05/21/25 05/29/25 History Allergies Allergy/AdvReac Type Severity Reaction Status Date / Time No Known Allergies Allergy Verified 05/29/25 09:25 Physical Exam Vitals: Vital Signs Temp Pulse Resp BP Pulse Ox 05/29/25 06:27 75 16 167/65 95 05/29/25 05:32 98.3 F 79 18 168/74 95 05/29/25 04:48 98 F 72 16 158/77 98 05/29/25 03:10 98.0 F 82 16 157/77 97 05/29/25 03:00 98.8 F 79 18 157/77 97 05/29/25 01:44 71 18 146/54 97 05/29/25 00:24 98.9 F 72 16 141/50 96 05/29/25 00:04 98.9 F 74 16 120/58 95 05/28/25 23:48 99.0 F 73 16 140/53 95 05/28/25 22:35 76 16 163/56 97 05/28/25 20:13 98.2 F 102 H 18 104/72 98 Intake and Output 05/28/25 05/29/25 05/29/25 22:59 06:59 14:59 Intake Total 310 Balance 310 Intake: Blood Product 310 Rc As-1 Unit 310 [id number] Other: Weight 90.718 kg Results CBC & Chem 7: 07/01/25 11:39 05/29/25 06:40 Labs: Abnormal Lab Results - Last 24 Hours (Table) 05/28/25 05/28/25 05/28/25 Range/Units 20:30 21:08 21:08 WBC 11.41 H (4.50-10.00) 10*3/uL RBC 2.92 L (4.10-5.20) 10*6/uL Hgb 6.8 L* D (12.0-15.0) g/dL Hct 22.9 L (37.2-46.3) % MCV 78.4 L (80.0-97.0) fL MCH 23.3 L (27.0-32.0) pg MCHC 29.7 L (32.0-37.0) g/dL Plt Count 552 H (140-440) 10*3/uL Immature Gran # 0.12 H (0.00-0.04) 10*3/uL Sodium 134 L (137-145) mmol/L Chloride 96 L (98-107) mmol/L BUN 22 H (7-17) mg/dL Glucose 126 H (74-99) mg/dL Calcium 10.5 H (8.4-10.2) mg/dL Phosphorus 5.0 H (2.5-4.5) mg/dL Magnesium (1.6-2.3) mg/dL Total Protein (6.3-8.2) g/dL Albumin (3.5-5.0) g/dL Crossmatch See Detail 05/29/25 05/29/25 Range/Units 06:40 06:40 WBC (4.50-10.00) 10*3/uL RBC 3.13 L (4.10-5.20) 10*6/uL Hgb 7.8 L (12.0-15.0) g/dL Hct 25.4 L (37.2-46.3) % MCV (80.0-97.0) fL MCH 24.9 L (27.0-32.0) pg MCHC 30.7 L (32.0-37.0) g/dL Plt Count (140-440) 10*3/uL Immature Gran # 0.07 H (0.00-0.04) 10*3/uL Sodium (137-145) mmol/L Chloride (98-107) mmol/L BUN (7-17) mg/dL Glucose 101 H (74-99) mg/dL Calcium (8.4-10.2) mg/dL Phosphorus 4.6 H (2.5-4.5) mg/dL Magnesium 1.5 L (1.6-2.3) mg/dL Total Protein 6.1 L (6.3-8.2) g/dL Albumin 3.4 L (3.5-5.0) g/dL Crossmatch
[2025-05-29] MEDS: DESVENLAFAXINE SUCCINATE 50 MG TAB.ER.24H PO SCH (14:52)
[2025-05-29] MEDS: FERROUS SULFATE 325 MG TAB PO SCH (14:52)
[2025-05-29 16:41] VITALS: RESP 16
[2025-05-29 18:15] LABS: HCT 25.6 % (37.2-46.3); HGB 7.9 g/dL (12.0-15.0); MCH 25.0 pg (27.0-32.0); MCHC 30.9 g/dL (32.0-37.0); MCV 81.0 fL (80.0-97.0); Platelet Count 445 10*3/uL (140-440); RBC 3.16 10*6/uL (4.10-5.20); RDW 19.1 % (11.5-14.5); WBC 6.79 10*3/uL (4.50-10.00)
--- NOTE | 2025-05-29 18:46 | P.DS ---
Providers Date of admission: 05/28/25 22:22 Expected date of discharge: 05/29/25 Attending physician: Hoang Bangura MD Consults: 05/28/25 22:21 Consult Physician Routine Consulting Provider: Sina Marino Consult Reason/Comments: anemia Do you want consulting provider notified?: Yes Primary care physician: [facility] Hospital Course: Discharge Diagnosis: Symptomatic anemia. Patient recently underwent stenting to right SFA on 05/23/2025 and was discharged home on dual antiplatelet therapy with aspirin and Plavix. Patient has known underlying chronic anemia with baseline hemoglobin around 9.5. Patient developed shortness of breath, palpitations, and dizziness and followed up with lost charge card clerk where she was found to have worsening hemoglo bin of 6.8 (preoperative hemoglobin prior to stent placement was 8.3). Patient was sent to our facility, she received 1 unit PRBCs and hemoglobin trended and remained stable resulting at 7.8, 7.7, and 7.9. Patient received blood transfusion in the ED prior to iron profile being drawn and unable to add onto previous labs. Discussed with patient she will need outpatient follow-up with hematology in 4 to 6 weeks for further workup and recommended iron profile for her chronic anemia. Patient discharged home on Protonix 40 mg daily and ferrous sulfate 325 mg daily. Patient denied any active bleeding, melena, hematochezia, or hematuria. Patient discharged home with prescription for repeat hemoglobin in 3 days with results to be sent to PCP and lost charge card clerk. Acute anemia on chronic iron deficiency anemia Hypomagnesemia Peripheral arterial Disease Hypertension Hyperlipidemia Hospital Course: Patient is a very pleasant 70-year-old female with a past medical history of hypertension, hyperlipidemia, anxiety with depression, and peripheral arterial disease status post aortogram and bilateral atherectomy and balloon angioplasty with successful stenting of right SFA on 05/23/2025. Pt was experiencing some bruising on her extremities, shortness of breath, dizziness and lightheadedness and went for follow up appointment with Dr. Marino and was sent for follow up lab work. Pt reports that she received a phone call telling her that her hemoglobin was low and she needed to go to the hospital for further evaluation. Upon arrival to our facility, pt underwent evaluation in the Emergency Departnent. Vital signs upon arrival show blood pressure 104/72, heart rate 102, respiratory rate 18, temp 98.2 F, and SpO2 of 98% on room air. EKG was completed showing normal sinus rhythm at 71 bpm with a right bundle branch block. Labs completed and reviewed. CBC showing leukocytosis with WBC count of 11.41 and microcytic anemia with hemoglobin of 6.8, hematocrit 22.9, MCV of 78.4, MCH of 23.3 MCHC 29.7, and thrombocytosis with platelet count of 552. BMP showing hypochloremic hyponatremia with chloride of 96 and sodium of 134 and slightly elevated BUN of 22. Blood glucose was 122. Calcium was elevated at 10.5. Magnesium was low at 1.6. Liver profile unremarkable. Troponin was negative at less than 0.012 and proBNP was 545. Patient was transfused 1 unit PRBCs and admitted under our services with consultation to cardiology. Repeat hemoglobin status post PRBC transfusion is 7.8, 7.7, and 7.9. Patient adamantly denies any complaints including dizziness, lightheadedness, shortness of breath, palpitations, and repeatedly requesting discharge. Discussed in detail with lost charge card clerk, in agreement with discharge at this time. Patient being discharged home on Protonix 40 mg daily and ferrous sulfate 325 mg daily. Patient instructed she will need to follow-up outpatient with slide developer in 4 weeks for further workup and evaluation of her chronic anemia. Patient discharged home with prescription for repeat CBC in 3 days with results to be sent to both her PCP and lost charge card clerk for follow-up and management. Patient to follow-up outpatient with PCP, lost charge card clerk, and slide developer. Physical exam: Vital signs reviewed and stable. General: Nontoxic, no distress and appears stated age. Derm: Skin warm and dry, normal coloration for ethnicity. Head: Atraumatic, normocephalic and symmetric. Eyes: EOM's intact, no lid lag, and anicteric sclera Mouth: no lip lesions, mucus membranes moist Cardiovascular: regular rate and rhythm with normal S1S2, soft systolic murmur, positive posterior tibial pulses bilaterally, and cap refill < 2 seconds. Lungs: Respirations even, regular, and unlabored on room air. Lungs CTA bilaterally, no rhonchi, no rales, no wheezing, and no accessory muscle usage. Abdominal: soft, nontender to palpation, no guarding, no appreciable organomegaly Ext: ROM intact. No gross muscle atrophy, no edema, no contractures Neuro: Speech clear, face symmetrical and CN II-XII grossly intact with no noted focal neuro deficits Psych: Alert and oriented to person, place, time, and situation. Appropriate and pleasant affect. A total of 33 minutes of time were spent preparing this complex discharge summary. Pt was discharged on 05/29/2025 at 6:39 PM. Patient was seen independently by Nurse Practitioner. This document was prepared using [employer] dictation software. Please allow for errors in city dispatch supervisor while rare they do occur. Yosi Branham NP rendered care for this patient independently, reviewed the findings and plan as documented in the note above. I did not physically speak with or examine the patient on this date. Patient Condition at Discharge: Stable Plan - Discharge Summary New Discharge Prescriptions: New Ferrous Sulfate [Iron (65 MG Elemental)] 325 mg PO W/LUNCH 30 Days #30 tab Pantoprazole [Protonix] 40 mg PO AC-BRKFST 30 Days #30 tab Continue Calcium Carbonate/Vitamin D3 [Calcium 600-Vit D3 400 Caplet] 1 tab PO DAILY [place]-3/Dha/Epa/Fish Oil [Fish Oil 500 mg Softgel] 1 cap PO DAILY Simvastatin 40 mg PO DAILY Vit C/E/Zn/Coppr/Lutein/Zeaxan [Preservision Areds 2 Softgel] 1 cap PO DAILY ALPRAZolam [Xanax] 0.25 mg PO BID PRN PRN Reason: Anxiety Lisinopril-Hctz 20-12.5 mg [Zestoretic 20-12.5] 2 tab PO DAILY Magnesium 400 mg PO DAILY Desvenlafaxine Succinate [Pristiq] 100 mg PO DAILY Tirzepatide [Mounjaro] 2.5 mg SQ PARMAR Clopidogrel [Plavix] 75 mg PO DAILY #90 tablet traZODone HCL [Desyrel] 50 mg PO HS PRN PRN Reason: Insomnia Discontinued Aspirin [Adult Low Dose Aspirin EC] 81 mg PO DAILY Discharge Medication List Calcium Carbonate/Vitamin D3 [Calcium 600-Vit D3 400 Caplet] 1 tab PO DAILY 12/30/18 [History] Lisinopril-Hctz 20-12.5 mg [Zestoretic 20-12.5] 2 tab PO DAILY 03/26/23 [History] [place]-3/Dha/Epa/Fish Oil [Fish Oil 500 mg Softgel] 1 cap PO DAILY 03/26/23 [History] Simvastatin 40 mg PO DAILY 03/26/23 [History] Vit C/E/Zn/Coppr/Lutein/Zeaxan [Preservision Areds 2 Softgel] 1 cap PO DAILY 03/26/23 [History] Magnesium 400 mg PO DAILY 08/23/23 [History] ALPRAZolam [Xanax] 0.25 mg PO BID PRN 01/08/25 [History] Desvenlafaxine Succinate [Pristiq] 100 mg PO DAILY 01/08/25 [History] Tirzepatide [Mounjaro] 2.5 mg SQ PARMAR 04/09/25 [History] Clopidogrel [Plavix] 75 mg PO DAILY #90 tablet 04/10/25 [Rx] traZODone HCL [Desyrel] 50 mg PO HS PRN 05/21/25 [History] Ferrous Sulfate [Iron (65 MG Elemental)] 325 mg PO W/LUNCH 30 Days #30 tab 05/29/25 [Rx] Pantoprazole [Protonix] 40 mg PO AC-BRKFST 30 Days #30 tab 05/29/25 [Rx] Follow up Appointment(s)/Referral(s): Sina Marino MD [STAFF PHYSICIAN] - 1 Week Cathi Garza MD [STAFF PHYSICIAN] - 4 Weeks (Follow up for further outpatient workup on chronic anemia) Dakota Raphael MD [Primary Care Provider] - 1-2 days Ambulatory/Diagnostic Orders: Complete Blood Count w/diff [LAB.AMB] Time Frame: 3 Days, Location: None Selected Patient Instructions/Handouts: Iron Rich Diet (DC), Anemia (DC) Discharge Disposition: HOME SELF-CARE
[2025-05-29 19:13] VITALS: BP 141/74; PULSE 81; TEMP 98.2
[2025-05-30] MEDS ORDERED: VIT A,C & E-LUTEIN-MINERALS 1 EACH TAB PO SCH (09:00)
== END 2025-05-30 02:13 | disposition home or self-care (01) | DRG 812 ==
LOC: EC 20:06 → 3SCARD 22:22
PROVIDERS: ADMIT Internal Medicine; ATTEND Internal Medicine
PROC: 30233N1 Transfusion of Nonautologous Red Blood Cells into Peripheral Vein, Percutaneous Approach (ICD-10-PCS; principal; 2025-05-28)
DX: D62 Acute posthemorrhagic anemia (principal); E87.1 Hypo-osmolality and hyponatremia; D75.839 Thrombocytosis, unspecified; E78.5 Hyperlipidemia, unspecified; E83.42 Hypomagnesemia; S80.11XA Contusion of right lower leg, initial encounter; I10 Essential (primary) hypertension; F32.A Depression, unspecified; D50.9 Iron deficiency anemia, unspecified; I73.9 Peripheral vascular disease, unspecified; E87.8 Other disorders of electrolyte and fluid balance, not elsewhere classified; F41.9 Anxiety disorder, unspecified; X58.XXXA Exposure to other specified factors, initial encounter; Z79.02 Long term (current) use of antithrombotics/antiplatelets; Z79.82 Long term (current) use of aspirin; Z87.891 Personal history of nicotine dependence; Z95.820 Peripheral vascular angioplasty status with implants and grafts
CPT/HCPCS: 36415; 36430; 80053; 83735; 83880; 84100; 84484; 85025; 85027; 85610; 85730; 86850; 86900; 86901; 86920; 96365; 96366; 96375; 99285